=== PATIENT | male | born 1955 | race Caucasian/White ===

== ENCOUNTER → 2016-11-03 | Outpatient (CLI) | payer OTHER ==
[~2016-11-03] MED LIST: MELO15TA3 PO; OMEP20CA9 PO; SERT50TA PO
--- NOTE | 2016-11-03 13:18 | DIAGNOSTIC IMAGING REPORT ---
SACRUM COCCYX MIN 2 VIEWS CLINICAL HISTORY: M53.3 Coccyx pain COMPARISON STUDY: Abdomen and pelvis CT 10/15/2015. FINDINGS: No fractures within the sacrum or coccyx. Bilateral sacroiliac joints are within normal limits. Right pelvic calcification is consistent with a phlebolith. Presacral soft tissues are within normal limits. IMPRESSION: Unremarkable sacrum/coccyx. Electronically signed by: Philip Dumont M.D. 11/03/2016 1:17 PM Dictated Date/Time: 11/03/2016 1:15 PM
[2016-11-03 16:56] LABS: BASO % 0.3 %; BASO ABS # 0.02 K/uL (0-0.2); COMPLETE YES; HEMATOCRIT 44.1 % (42-52); IG% 0.8 %; LYMPH % 22.5 %; LYMPH ABS # 1.42 K/uL (1.2-3.4); MEAN CELL VOLUME 85.8 fL (80-100); MEAN CORPUSCULAR HEMOGLOBIN 29.2 pg (25-34); MEAN PLATELET VOLUME 9.1 fL (7.4-10.4); MONO % 9.2 %; NEUT % 64.2 %; PLATELET COUNT 191 K/uL (130-400); RED BLOOD COUNT 5.14 M/uL (4.7-6.1); WHITE BLOOD COUNT 6.32 K/uL (4.8-10.8)
[2016-11-03 17:10] LABS: ALT/SGPT 46 U/L (12-78); AST/SGOT 26 U/L (15-37); BLOOD UREA NITROGEN 16 mg/dl (7-18); BUN/CREATININE RATIO 15.7 (10-20); CALCIUM 9.4 mg/dl (8.5-10.1); CARBON DIOXIDE 26 mmol/L (21-32); CHLORIDE 111 mmol/L (98-107); GLUCOSE 89 mg/dl (70-99); MAGNESIUM 2.2 mg/dl (1.8-2.4); SODIUM 142 mmol/L (136-145)
[2016-11-03 17:11] LABS: ALB/GLOB RATIO 1.1 (0.9-2); ALKALINE PHOSPHATASE 80 U/L (45-117); RHEUMATOID FACTOR < 10.0 U/mL (0-15)
[2016-11-03 17:38] LABS: LYME DISEASE AB IGG NEG (NEG); LYME DISEASE AB IGM NEG (NEG)
== END | disposition home or self-care (01) ==
LOC: C.RADBC 12:26
PROVIDERS: ATTEND Physician Assistant Medical
DX: M53.3 Sacrococcygeal disorders, not elsewhere classified (principal); R94.31 Abnormal electrocardiogram [ECG] [EKG]; M25.50 Pain in unspecified joint

== ENCOUNTER → 2016-11-07 | Outpatient (CLI) | payer OTHER ==
--- NOTE | 2016-11-07 18:02 | DIAGNOSTIC IMAGING REPORT ---
LEFT HAND MIN 3 VIEWS ROUTINE CLINICAL HISTORY: 61 years-old Male presenting with ARTHRALGIA OF MULTIPLE SITES. TECHNIQUE: Frontal, oblique, and lateral views of the left hand were obtained. COMPARISON: None. FINDINGS: Sclerosis and suggestion of subchondral cystic change of the radial aspect of the radiocarpal articulation. No significant joint space narrowing. Minimal osteophytosis of the trapezium at the first carpometacarpal articulation. Minimal marginal osteophytes noted at several of the distal interphalangeal joints at the heads of the middle phalanges. No erosive changes. No acute fracture or malalignment. No soft tissue calcification. IMPRESSION: Degenerative change of the radiocarpal, first carpal metacarpal, and distal interphalangeal joints. No acute osseous injury. Electronically signed by: Jesus Low M.D. 11/07/2016 6:01 PM Dictated Date/Time: 11/07/2016 5:58 PM
--- NOTE | 2016-11-07 18:05 | DIAGNOSTIC IMAGING REPORT ---
RIGHT HAND MIN 3 VIEWS ROUTINE CLINICAL HISTORY: 61 years-old Male presenting with ARTHRALGIA OF MULTIPLE SITES Right. TECHNIQUE: Frontal, oblique, and lateral views of the right hand were obtained. COMPARISON: Plain radiographs of the right second finger from 2015. FINDINGS: Chondrocalcinosis of the triangular fibrocartilage. Minimal marginal osteophytosis noted at several distal interphalangeal joints. No erosions. No other soft tissue calcification. No acute fracture or malalignment. IMPRESSION: Chondrocalcinosis of the TFCC, which could be seen in the setting of osteoarthritis, calcium pyrophosphate deposition disease, and multiple additional etiologies. Minimal degenerative changes of the distal interphalangeal joints. Electronically signed by: Jesus Low M.D. 11/07/2016 6:04 PM Dictated Date/Time: 11/07/2016 6:01 PM
== END | disposition home or self-care (01) ==
LOC: C.RAD 17:32
PROVIDERS: ATTEND Physician Assistant Medical
DX: M25.50 Pain in unspecified joint (principal); M11.231 Other chondrocalcinosis, right wrist

== ENCOUNTER → 2017-01-13 | Outpatient (CLI) | payer OTHER ==
--- NOTE | 2017-01-14 07:54 | SPLIT NIGHT TECHNICIAN REPORT ---
[facility] Split Night Polysomnogram - Elevator Runner Report Study date: 01/13/2017 Referring Physician: Jesus Huffman M.D. Name: FABIOARMAANE Tristen Elevator Runner: Lisa Saravia, PSGT. Date of : 1955 Height: 61 years, Height 5' 7.5" Sex: Male Weight: 245 lbs Age: 61 Neck Circum:17.5 inches BMI: Medications: 37.8 [id number] 50-325-40 MG, OMEPRAZOLE 20 MG, SERTALINE HCI 50 MG. Patient History 61-YEAR-OLD MALE PRENTS TO THE SLEEP LAB FOR A SPLIT NIGHT STUDY. PATIENT STATES THAT HIS C-PAP MACHINE INOP AND NEEDS TO REPLACE IT. HE HAS BEEN USEING THE C-PAP SINCE 2006.NECK =17.5 INCHES. Parameters Monitored NPSG: E1-M2, E2-M1, Fp1-M2, Fp2-M1, F3-M2, F4-M2, F4-M1, C3-M2, C4-M2, C4-M1, O1-M2, O2-M2, O2-M1, T3-M2, T4-M1, P3-M2, P4-M1, CHIN1, CHIN2, HR, EKG, Legs, PFLOW, SNOR, FLOW, CFLOW, Tidal Volume, THOR, ABDO, SpO2, PLTH, CPRESS, ETCO2 Wave, ETCO2, pH SLEEP SUMMARY DATA DIAGNOSTIC TREATMENT Lights Out: 9:23:27 PM NONE Lights On: 12:21:27 AM 5:01:57 AM Total Recording Time (TRT): 181.9 min. 273.1 min. Total Sleep Time (TST): 127.5 min. 247.5 min. NREM Time: 124.0 min. 153.5 min. REM Time: 3.5 min. 94.0 min. Sleep Period Time (SPT): 134.0 min. 259.0 min. Sleep Efficiency (SE): 71 % 91 % Sleep Latency: 44.0 min. NONE min. Arousal Index: 35.8 21.1 PAP Treatment Levels: 4, 6, 8 * Optimal Pressure(s) SLEEP STAGING DATA DIAGNOSTIC TREATMENT Duration (min) TST % Duration (min) TST % Stage Wake: 51.9 min. -- 24.6 min. -- WASO: 6.5 min. -- 11.5 min. -- NREM: 124.0 min. 97 % 153.5 min. 62 % Stage N1: 45.0 min. 35 % 12.0 min. 5 % Stage N2: 79.0 min. 62 % 141.5 min. 57 % Stage N3: 0.0 min. 0 % 0.0 min. 0 % REM: 3.5 min. 3 % 94.0 min. 38 % POSITIONAL DATA Event Count Index Event Count Index Supine: N/A N/A 11 25.8 Supine NREM: N/A N/A 0 0.0 Supine REM: N/A N/A 11 45 Non-Supine: 92 43.3 3 0.8 Non-Supine NREM: 88 42.6 1 0.4 Non-Supine REM: 4 68.6 2 1.5 AROUSAL SUMMARY DATA: Event Count Index Event Count Index Apnea Arousals: 0 1.9 0 0.0 Hypopnea Arousals: 9 4.2 6 1.5 Snore Arousals: 5 2.4 12 2.9 PLM Arousals: 8 3.8 0 0.0 Non-Specific Arousals: 49 23.1 69 16.7 Total Arousals: 76 35.8 87 21.1 MYOCLONUS (PLM) Event Count Index Event Count Index PLM: 101 47.5 19 4.6 PLM AROUSAL: 8 3.8 0 0.0 PLM W/O AROUSAL 101 47.5 19 4.6 PLM W/RESP EVENT 11 0.0 0 0.0 MYOCLONUS (PLM) Event Count Index Event Count Index LM: 6 19.8 58 14.1 LM AROUSAL: 6 2.8 2 0.5 LM W/O AROUSAL LM W/RESP EVENT LM NON SPECIFIC 106 49.9 72 17.5 HEART RATE DATA DIAGNOSTIC TREATMENT Sleep (bpm): 66 63 REM (bpm): 93 95 NREM (bpm): 94 94 Tachycardia Count: 0 0 Tachycardia Duration: 0.00 0 Bradycardia Count: 0 0 Bradycardia Duration: 0.00 0 DIAGNOSTIC PORTION TREATMENT PORTION RESPIRATORY DATA Event Count Index Event Count Index AHI: -- 43.3 -- 3.4 RDI: -- 43.3 -- 3 Obstructive Apnea: 3 1.4 0 0.0 Central Apnea: 1 0.5 0 0.0 Mixed Apnea: 0 0.0 0 0.0 Hypopnea: 88 41.4 14 3.4 RERA: 0 0.0 0 0.0 Total Apneas: 4 1.9 0 0.0 RESPIRATORY DATA REM NREM SLEEP REM NREM SLEEP Supine Position: Obstructive Apneas: N/A N/A N/A 0 0 0 Central Apneas: N/A N/A N/A 0 0 0 Mixed Apneas: N/A N/A N/A 0 0 0 Hypopneas: N/A N/A N/A 11 0 11 RERA N/A N/A N/A 0 0 0 Total Supine Events: N/A N/A N/A 11 0 11 Supine AHI: N/A N/A N/A 45 0.0 25.8 Supine RDI: N/A N/A N/A 45.2 0.0 25.8 REM NREM SLEEP REM NREM SLEEP Non-Supine Position: Obstructive Apneas: 0 3 3 0 0 0 Central Apneas: 0 1 1 0 0 0 Mixed Apneas: 0 0 0 0 0 0 Hypopneas: 4 84 88 2 1 3 RERA 0 0 0 0 0 0 Total Supine Events: 4 88 92 2 1 3 Supine AHI: 68.6 42.6 43.3 1.5 0.4 0.8 Supine RDI: 68.6 42.6 43.3 1.5 0.4 0.8 OXYGEN DESTAURATION DATA: Event Count Index Event Count Index REM Desaturations: 5 85.7 22 14.0 NREM Desaturations: 119 57.6 9 3.5 SNORE DATA DIAGNOSTIC TREATMENT Snore Time: 6.1 12:42:57 AM Snore TST%: 2 2 Snore Arousal Count: 5 12 Snore Arousal Index: 2.4 2.9 Desaturation Event Summary: Minimum %SpO2 Event Count Mean/Min/Max Duration(sec.) Desaturation Index % Time In Bed > 90 154 21.9 / 4.8 / 59.3 22.3 94.4 86 - 90 1 4.5 / 4.5 / 4.5 2.5 5.5 81 - 85 0 N/A 0.0 0.1 76 - 80 0 N/A 0.0 0.0 71 - 75 0 N/A 0.0 0.0 66 - 70 0 N/A 0.0 0.0 61 - 65 0 N/A 0.0 0.0 56 - 60 0 N/A 0.0 0.0 51 - 55 0 N/A 0.0 0.0 < 50 0 N/A 0.0 0.0 OXYGEN SATURATION DATA DIAGNOSTIC TREATMENT SpO2 Mean Sleep: 94 % 95 % SpO2 Mean REM: 93 % 95 % SpO2 Mean NREM: 94 % 94 % SpO2 Minimum Sleep: 79 % 83 % SpO2 Minimum REM: 85 % 83 % SpO2 Minimum NREM: 79 % 88 % Time Below 90% (TST): 2.4 9.0 Time Below 88% (TST): 0.6 0.1 Total REM NREM Awake <50% 0.0 min. 0.0 min. 0.0 min. 0.0 min. 51 - 60% 0.0 min. 0.0 min. 0.0 min. 0.0 min. 61 - 70% 0.0 min. 0.0 min. 0.0 min. 0.0 min. 71 - 80% 0.1 min. 0.0 min. 0.1 min. 0.0 min. 81 - 90% 24.4 min. 1.2 min. 14.4 min. 8.9 min. 91 - 100% 414.2 min. 95.7 min. 257.0 min. 61.5 min. Average 94 95 94 94 Minimum SpO2 79 83 79 81 Desaturation Event Index 20.6 16.6 27.7 0.0 # Desat. Events below 89% 8 3 5 N/A Time(%) with Saturation below 89% 2.4 0.1 1.3 1.0 Time(min.) with Saturation below 89% 10.7 0.5 5.7 4.5 Recording Elevator Runner Comments: Split -Night: slept in the right, left, and supine positions. Cardiac arrhythmia and PLM's noted. No bruxism noted. Snoring was noted and scored as a 2 on a scale of 1 through 5. (0=no snoring, 5=snoring loud enough to be heard through a closed door or down the owens way) At 12:21 am, has met specific Split-Night criteria during the diagnostic portion of this study. CPAP was initiated at +4 CMH2O and up-titrated to an optimal level of +8 CMH2O, which nearly eliminated all respiratory events and snoring. A large F&P Simplus, was used during titration Mr. Bryan awoke to use the restroom zero times during the night. Mr. Bryan stated, I did not sleep as well as I do when I am in my own bed. The final report will be interpreted and signed by a sleep physician. The completed physician report will then be placed in the patient medical record. Therapy Event: Therapy (cm H20) 0 4 6 8 Total Time at Pressure (min.) 179.4 124.6 23.1 124.4 TST at Pressure (min.) 127.5 100.0 23.1 124.4 # Periods 1 1 1 1 Sleep Onset (min.) 44.0 13.1 0.0 0.0 REM Onset (min.) 112.0 65.6 0.0 59.9 Sleep Efficiency % 71 80 100 100 Wakefulness (%) 28.9 19.7 0.0 0.0 Wakefulness (min.) 51.9 24.6 0.0 0.0 NREM 1 (%) 25.1 9.2 0.0 0.4 NREM 1 (min.) 45.0 11.5 0.0 0.5 NREM 2 (%) 44.0 23.7 71.8 76.7 NREM 2 (min.) 79.0 29.5 16.6 95.4 NREM 3 (%) 0.0 0.0 0.0 0.0 NREM 3 (min.) 0.0 0.0 0.0 0.0 REM (%) 2.0 47.4 28.2 22.9 REM (min.) 3.5 59.0 6.5 28.5 # Arousals 76 48 5 34 Arousal Index 35.8 28.8 13.0 16.4 # Snore 239 65 16 105 Snore Index 112.5 39.0 41.5 50.6 AHI 43.3 4.8 10.4 1.0 AHI Supine N/A 51.9 13.7 N/A AHI Non-Supine 43.3 0.7 0.0 1.0 NREM AHI 42.6 0.0 0.0 0.6 REM AHI 68.6 8.1 36.9 2.1 RDI 43.3 4.8 10.4 1.0 # Obstructive 3 0 0 0 # Central Ap 1 0 0 0 # Mixed 0 0 0 0 # Hypopneas 88 8 4 2 RERAS 0 0 0 0 Total Respiratory Events 92 8 4 2 Time Below SpO2 89.00% (min.) 0.9 5.1 0.0 0.1 Mean NREM SpO2 (%) 94 93 95 95 Mean REM SpO2 (%) 93 95 95 95 Mean Sleep SpO2 (%) 94 94 95 95 Min NREM SpO2 (%) 79 88 94 92 Min REM SpO2 (%) 85 89 90 83 Position Supine (min.) 0.0 8.1 17.5 0.0 Position Non-supine (min.) 127.5 91.9 5.6 124.4 LM Index Sleep 67.3 25.8 10.4 14.5 LM Index NREM 68.7 36.6 0.0 15.0 LM Index REM 17.1 18.3 36.9 12.6 Mean Heart Rate (bpm) 66 63 63 62 Min Heart Rate (bpm) 32 55 60 57
--- NOTE | 2017-01-15 14:21 | POLYSOMNOGRAPH REPORT ---
CLINICAL DATA: A 61-year-old male with BMI of 37.8 referred by Jesus Huffman for split night sleep study. He has a CPAP machine which is not working and needs replaced. He has been using CPAP since 2006. This was a split night study. SLEEP ARCHITECTURE: For the diagnostic portion of the study, sleep period was 134 minutes. Total sleep time was 127.5 minutes divided between 124 minutes of non-REM sleep and 3.5 minutes of REM sleep. Sleep latency was delayed at 44 minutes. Sleep efficiency was 71%. Arousal index was 35.8. Sleep consisted of stage N1 35%, stage N2 62%, and REM 3%. For the treatment portion of the study, sleep period was 259 minutes. Total sleep time was 247.5 minutes divided between 153.5 minutes of non-REM sleep and 94 minutes of REM sleep. Sleep latency was immediate. Sleep efficiency was 91%. Arousal index was 21.1. Sleep consisted of stage N1 5%, stage N2 57%, and REM 38%. AROUSAL DATA: Prior to treatment, 76 arousals were recorded for an index of 35.8 per hour. During treatment, 87 arousals were recorded for an index of 21 per hour. PLM DATA: Prior to treatment, 106 limb movements during sleep were noted for an index of 50 per hour. During treatment, 72 limb movements during sleep were noted for an index of 17.5 per hour. EKG: Heart rates ranged from 63 to 95 beats per minute. PACs were noted. RESPIRATORY DATA: Severe sleep apnea was documented prior to treatment. The diagnostic AHI was 43.3. There were 3 obstructive and 1 central apneic episodes noted. There were 88 hypopneic episodes. During treatment, the average AHI was 3.4. There were 14 hypopneic episodes. OXIMETRY DATA: Nocturnal hypoxemia was seen prior to treatment. Oxygen pravin was 79% during non-REM sleep prior to treatment. Mean saturation during CPAP treatment was 95%. PETROGRAPHY TEACHER'S COMMENTS AND TREATMENT SUMMARY: The patient slept in the right, left, and supine positions. Snoring was moderate, rated 2 on a scale of 1-5. Split night criteria was met at 12:21 a.m. The patient was started on CPAP using a large [employer] Simplus mask. He was titrated up to 8 cm of water pressure. At his final pressure setting, the patient slept for 124 minutes with an AHI of 1. IMPRESSION: Severe sleep apnea/hypopnea corrected with CPAP 8 cm of water pressure using a large [employer] Simplus mask. RECOMMENDATIONS: The patient should be started on the above noted treatment regimen and seen back in followup within 90 days to document efficacy and compliance. MTDD
== END | disposition home or self-care (01) ==
LOC: C.NEUR 20:00
PROVIDERS: ATTEND Internal Medicine
DX: G47.30 Sleep apnea, unspecified (principal)

== ENCOUNTER → 2017-04-24 | Outpatient (CLI) | payer OTHER ==
[~2017-04-24] MED LIST changes: +ACET1TAB84 PO; +CLB/200 PO; +CYM/30 PO; -MELO15TA3 PO; +MULT-506 PO; -SERT50TA PO
--- NOTE | 2017-04-24 14:46 | ECHOCARDIOGRAM REPORT ---
*NOTICE TO RECEIVING CONSTITUTION PARTY AGENCY This information is strictly Confidential and protected under [place] law. [place] law prohibits you from making any further disclosure of this information unless further disclosure is expressly permitted by the written consent of the person to whom it pertains or is authorized by law. A general authorization for the release of medical or other information is not sufficient for this purpose. Hospital accepts no responsibility if the information is made available to any other person, INCLUDING THE PATIENT. Interpretation Summary * Name: SORIN MCCARTHY Study Date: 04/24/2017 12:44 PM BP: 148/80 mmHg * Patient Location: [facility] HR: 75 * : 1955 (M/d/yyyy) Gender: Male Height: 69 in * Age: 61 yrs Ethnicity: CA Weight: 244 lb * Ordering Physician: Jesus Huffman * Referring Physician: Jesus Huffman * Performed By: Gume Castillo RCS * * Reason For Study: Bifascicular Block, Pre-Op Clearance * BSA: 2.2 m2 * -- Conclusions -- * There is moderate asymmetric left ventricular hypertrophy. * Proximal septal thickening is noted. * Left ventricular systolic function is normal. * Diastolic dysfunction, Grade II, consistent with elevated left atrial pressure. * The left atrium is moderately dilated. * Mild aortic regurgitation. * There is systolic anterior motion of the chordal apparatus. * Right ventricular systolic pressure is normal. * Borderline aortic root dilatation. * There appears to be an element of mild aortic stenosis * Compared to study from 2013, there appears to have been interval increase in the degree of septal hypertrophy. This is concerning for development of a hypertrophic cardiomyopathy. Procedure Details * A complete two-dimensional transthoracic echocardiogram was performed (2D, M-mode, Doppler and color flow Doppler). Left Ventricle * The left ventricle is normal in size. * There is moderate asymmetric left ventricular hypertrophy. * Proximal septal thickening is noted. * Left ventricular systolic function is normal. * Diastolic dysfunction, Grade II, consistent with elevated left atrial pressure. * The left ventricular wall motion is normal. Right Ventricle * The right ventricle is normal in size and function. Atria * The left atrium is moderately dilated. * Right atrial size is normal. Mitral Valve * The mitral valve is normal. * There is systolic anterior motion of the chordal apparatus. * Significant mitral regurgitation is absent. Tricuspid Valve * The tricuspid valve is not well visualized, but is grossly normal. * There is mild tricuspid regurgitation. * Right ventricular systolic pressure is normal. Aortic Valve * The aortic valve is not well visualized. * There appears to be an element of mild aortic stenosis * Mild aortic regurgitation. * There is an eccentric jet of aortic insufficiency directed against the anterior mitral leaflet. Great Vessels * Borderline aortic root dilatation. Pericardium/Pleural * There is no pericardial effusion. MMode 2D Measurements and Calculations IVSd 1.8 cm IVSs 2.6 cm LVIDd 3.9 cm LVIDs 2.1 cm LVPWd 1.1 cm LVPWs 1.2 cm IVS/LVPW 1.7 FS 46.2 % EDV(Teich) 64.5 ml ESV(Teich) 14.1 ml EF(Teich) 78.2 % EDV(cubed) 57.7 ml ESV(cubed) 9.0 ml EF(cubed) 84.4 % % IVS thick 46.8 % % LVPW thick 11.2 % LV mass(C)d 206.5 grams LV mass(C)dI 91.9 grams/m\S\2 LV mass(C)s 164.8 grams LV mass(C)sI 73.3 grams/m\S\2 SV(Teich) 50.4 ml SI(Teich) 22.4 ml/m\S\2 SV(cubed) 48.7 ml SI(cubed) 21.7 ml/m\S\2 Ao root diam 4.0 cm Ao root area 12.3 cm\S\2 ACS 2.2 cm LA dimension 4.5 cm asc Aorta Diam 4.2 cm LA/Ao 1.1 LVOT diam 2.2 cm LVOT area 3.7 cm\S\2 EDV(MOD-sp4) 118.0 ml ESV(MOD-sp4) 39.0 ml EF(MOD-sp4) 66.9 % SV(MOD-sp4) 79.0 ml SI(MOD-sp4) 35.1 ml/m\S\2 Doppler Measurements and Calculations MV E max joao 77.6 cm/sec MV A max joao 66.0 cm/sec MV E/A 1.2 MV P1/2t max joao 130.0 cm/sec MV P1/2t 76.3 msec MVA(P1/2t) 2.9 cm\S\2 MV dec slope 499.2 cm/sec\S\2 MV dec time 0.29 sec Ao V2 max 247.6 cm/sec Ao max PG 24.5 mmHg Ao max PG (full) 18.4 mmHg Ao V2 mean 165.3 cm/sec Ao mean PG 12.6 mmHg Ao mean PG (full) 9.0 mmHg Ao V2 VTI 53.6 cm RAZA(I,A) 1.9 cm\S\2 RAZA(I,D) 1.9 cm\S\2 RAZA(V,A) 1.9 cm\S\2 RAZA(V,D) 1.9 cm\S\2 AI max joao 407.7 cm/sec AI max PG 66.5 mmHg AI dec slope 258.5 cm/sec\S\2 AI P1/2t 461.9 msec LV V1 max PG 6.1 mmHg LV V1 mean PG 3.5 mmHg LV V1 max 123.4 cm/sec LV V1 mean 89.2 cm/sec LV V1 VTI 27.3 cm SV(Ao) 657.1 ml SI(Ao) 292.3 ml/m\S\2 SV(LVOT) 102.2 ml SI(LVOT) 45.5 ml/m\S\2 PA V2 max 122.5 cm/sec PA max PG 6.0 mmHg TR max joao 262.1 cm/sec
== END | disposition home or self-care (01) ==
LOC: C.CPL 12:14
PROVIDERS: ATTEND Internal Medicine
DX: Z01.818 Encounter for other preprocedural examination (principal); I45.2 Bifascicular block; I51.7 Cardiomegaly

== ENCOUNTER 2017-06-10 10:59 | Observation (INO) | payer OTHER ==
[2017-04-21 08:25] VITALS: BMI 36.0
[2017-05-28 13:36] VITALS: BMI 36.0
[~2017-06-10] VITALS: Ht 175.3 cm; Wt 110.9 kg
[2017-06-10] VITALS (10 sets, daily range): BP systolic 124–167; BP diastolic 74–99; PULSE 68–85; TEMP 36.3–37; O2SAT 94–97; Ht 175.3 cm; Wt 110.9 kg
--- NOTE | 2017-06-10 07:11 | History and Physical ---
History & Physical Date Jun 10, 2017. Chief Complaint Patient presents as a 61-year-old white male with complaints of a chronic pain about his knee with a chronic tear of his anterior cruciate ligament of the right knee as well as a tear of the posterior horn of the medial meniscus of his right knee he has a left knee medial meniscal tear with chondromalacia patella medial femoral condyle complaints of bilateral knee pain the patient's failed times in physical therapy bracing of his right knee anti-inflammatories corticosteroid injections relative rest activity modification presents today for endoscopic evaluation of bilateral knees History of Present Illness The patient is a 61 year old male with complaints of bilateral knee pain with tears of bilateral menisci chronic intakes ACL tear of his right knee as well as chondromalacia of both medial compartments as well as patellofemoral compartments Past Medical/Surgical History Medical Problems: (1) Anxiety State Nos (2) Chest wall pain (3) Chest wall pain (4) Hypertension Nos (5) Reflux Esophagitis Additional History Hepatic Disease: No Endocrine Disorder: No Hypertension: Yes Heart Disease: Yes (irregular heart beat) Allergies Coded Allergies: BEE STING (Verified Allergy, Unknown, SWELLING, 05/28/17) NO KNOWN DRUG ALLERGIES (Verified Allergy, Unknown, NONE, 05/28/17) Onion (Verified Allergy, Unknown, GI UPSET UP TO LOSE BALANCE, HALLUCINATE WITH LARGER AMTS, 05/28/17) Home Medications Scheduled Acetaminophen (Tylenol Arthritis Ext Rel), 1,300 MG PO PRN Celecoxib (CeleBREX), 200 MG PO QPM Duloxetine HCl (Cymbalta), 90 MG PO QPM Multivitamin (Multivitamin), 1 TAB PO QAM Omeprazole (Prilosec), 20 MG PO BID Physical Examination Skin: warm/dry, no rash Eyes: normal inspection, EOMI, sclerae normal ENT: normal ENT inspection, pharynx normal Head: normocephalic, atraumatic Neck: supple, no adenopathy, trachea midline Respiratory/Chest: lungs clear, normal breath sounds, no respiratory distress Cardiovascular: regular rate, rhythm, no edema, no murmur Abdomen / GI: normal bowel sounds, non tender Back: normal inspection Extremities: normal inspection, normal range of motion Neurologic/Psych: no motor/sensory deficits, alert, normal reflexes, oriented x 3 Diagnosis Patient presents with bilateral knee pain right knee chronic ACL tear medial meniscus tear left knee medial meniscal tear 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
--- NOTE | 2017-06-10 10:31 | History & Physical Bridge Note ---
H&P Re-Evaluation Bridge Note: I have examined the patient, reviewed the History & Physical and in the interval since the performance of the History & Physical I have noted the following changes of clinical significance: No changes noted
[~2017-06-10 10:59] MED LIST changes: +ATROPINE SULFATE 0.1 MG/ML 5ML SYR IV PRN; +BUPIVACAINE 0.25% 30 ML VIAL ONE; +CEFAZOLIN 2000MG IV PUSH 15 ML IV SCH; +EpHEDrine SULFATE INJ 50 MG/ML AMP IV PRN; +FENTANYL CITRATE INJ 50 MCG/1 ML 2 ML VIAL IV PRN; +HYDROmorphone INJ 1 MG/ML SYR IV PRN; +LACTATED RINGER'S 1000ML 500 ML IV SCH; +ONDANSETRON INJ 2 MG/ML 2 ML VIAL IV PRN
[2017-06-10] MEDS ORDERED: PROPOFOL IV EMULSION 10 MG/ML 20 ML VIAL IV ONE (11:41)
[2017-06-10] MEDS ORDERED: LIDOCAINE HCL 2% 2 ML VIAL (20MG/ML) ONE (11:41)
[2017-06-10] MEDS ORDERED: DEXAMETHASONE SOD INJ 4 MG/ML VIAL ONE (11:41)
[2017-06-10] MEDS ORDERED: ONDANSETRON INJ 2 MG/ML 2 ML VIAL ONE (11:41)
[2017-06-10] MEDS ORDERED: FENTANYL CITRATE INJ 50 MCG/1 ML 2 ML VIAL ONE ×4 (11:41→15:06)
[2017-06-10] MEDS ORDERED: MIDAZOLAM HCL 1 MG/ML 2ML VIAL ONE (11:41)
[2017-06-10] MEDS ORDERED: BUPIVACAINE/EPINEPHRINE 0.5% MPF 1:200,000 30 ML VIAL ONE (12:00)
[2017-06-10] MEDS ORDERED: BUPIVACAINE 0.5 % 5 MG/1 ML MPF 30ML VIAL ONE (12:00)
--- NOTE | 2017-06-10 12:32 | History & Physical Bridge Note ---
H&P Re-Evaluation Bridge Note: I have examined the patient, reviewed the History & Physical and in the interval since the performance of the History & Physical I have noted the following changes of clinical significance: No changes noted please note correction the patient will have bilateral partial possible partial meniscectomies corrected not vasectomy meniscectomy possible partial meniscectomies as the correct terminology
--- NOTE | 2017-06-10 14:43 | [facility] Post Operative Brief Note ---
Immediate Operative Summary Operative Date Jun 10, 2017. Pre-Operative Diagnosis 1.Bilateral Knee Pain 2. 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 Left Knee Medial Meniscal Tear, Chondromalacia Medial Femoral Condyle Patellofemoral Joint Post-Operative Diagnosis Right Knee: Torn anterior cruciate ligament; torn medial meniscus; torn lateral meniscus. Left Knee: Torn medial meniscus grade 3 chondral lesion patellofemoral joint Torn medial meniscus; grade 3 patellofemoral chondromalacia Procedure(s) Performed Right Knee Arthroscopy with Medial Menisectomy, Lateral Meniscectomy, Anterior Cruciate Ligament Reconstruction with Allograft; Left Knee Arthroscopy with Partial Medial Meniscectomy, Chondroplasty Surgeon Dr. Rodriguez Farley Commercial Collector Surgeon(s) Casimiro Gipson PA-C Estimated Blood Loss 5mL right, 2mL left Findings Consistent with Post-Op Diagnosis Specimens none, Per Surgeon Drains None Anesthesia Type General Complication(s) none Disposition Disposition: Recovery Room / PACU
--- NOTE | 2017-06-10 14:46 | [facility] Operative Report ---
Operative Report Operative Date Jun 10, 2017. Pre-Operative Diagnosis 1.Bilateral Knee Pain 2. 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 Left Knee Medial Meniscal Tear, Chondromalacia Medial Femoral Condyle Patellofemoral Joint Post-Operative Diagnosis Right Knee: Torn anterior cruciate ligament; torn medial meniscus; torn lateral meniscus. Left Knee: Torn medial meniscus grade 3 chondral lesion patellofemoral joint Torn medial meniscus; grade 3 patellofemoral chondromalacia Procedure(s) Performed Right Knee Arthroscopy with Medial Menisectomy, Lateral Meniscectomy, Anterior Cruciate Ligament Reconstruction with Allograft; Left Knee Arthroscopy with Partial Medial Meniscectomy, Chondroplasty Surgeon Dr. Rodriguez Farley Process Eng Surgeon(s) Casimiro Gipson PA-C Estimated Blood Loss 5mL right, 2mL left Findings Patient presents with bilateral knee pain right knee torn anterior cruciate ligament or medial meniscus torn lateral meniscus left knee torn medial meniscus grade 3 chondral lesion patellofemoral joint but no response to conservative therapy presents today for arthroscopic evaluation of bilateral knees with ACL reconstruction right knee Specimens none, Per Surgeon Drains None Anesthesia Type General Complication(s) none Disposition Recovery Room / PACU Indications Patient presents with bilateral knee pain and instability right knee has a torn anterior cruciate ligament with medial meniscal tear lateral meniscal tear left knee has a medial meniscal tear with grade 3 chondral lesions patellofemoral joint is been unresponsive to conservative therapy presents for arthroscopic evaluation Description of Procedure After proper prepping draping of bilateral lower extremities the right lower extremity subsidy underwent arthroscopy utilizing medial lateral parapatellar portals. Examination of the right knee reveals a complex tear posterior horn the medial meniscus complex tear the posterior horn lateral meniscus absent partial posterior horn medial and lateral meniscectomies were performed there was noted to be evidence of a complete tear of the anterior crucial ligament stump of the ACL was debrided and was removed and notchplasty was performed to create the region for a new ACL allograft: Allograft had been prepared at the back table associated having performed a thorough partial posterior horn medial meniscectomy partial posterior horn lateral meniscectomy debridement of stump and notchplasty appropriate tibial and femoral tunnels were drilled allograft was sized to 8.5 mm on tibia and 8.5 mm on the femur social was passed and fixed with 15 mm Endobutton on the femur the tibial side was fixed with a 10 x 25 mm absorbable screw the examination of the knee revealed he has not the need to be completely stable no further Valentín examination was noted no further instability or pivot shift was noted subscale particular matter debris was removed skin ports were closed with 4-0 nylon the anteromedial incision was closed with a 3-0 Vicryl and subsequently 4-0 running subcuticular Monocryl curl in the immobilizer was placed to the left knee arthroscopy was subsequently performed utilizing medial and appropriate patellar portals Examination of the left knee revealed evidence of a complex tear of the posterior horn of the medial meniscus of a partial posterior horn medial meniscectomy was performed lateral meniscus was also frozen to be intact anterior and posterior cruciate ligament is also probably to be intact there is a grade 3 chondral lesion measuring 2 x 2 cm involving patellofemoral joint chondroplasty of the patellofemoral joint back to stable margin for both patella and femur for a 2.5 x 3 cm lesion confirmed with thorough irrigation to remove marginal. Microdebriders removed skin was closed with 4-0 nylon and a sterile compression dressing placed patient taken to recovery in stable condition. 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 Any exceptions are noted below.
[2017-06-10] MEDS ORDERED: HYDR-5688 PO (14:54)
[2017-06-10] MEDS ORDERED: KETOROLAC TROMETHAMINE 15 MG/ML VIAL IV. PRN (15:00)
[2017-06-10] MEDS ORDERED: MoRPHine SULFATE 2 MG/ML CARP IV PRN (15:00)
[2017-06-10] MEDS ORDERED: ONDANSETRON INJ 2 MG/ML 2 ML VIAL IV PRN ×2 (15:00→17:15)
--- NOTE | 2017-06-10 15:06 | Discharge Instructions ---
Discharge Instructions Date of Service Jun 10, 2017. Visit Reason for Visit: Bilateral Knee Medial Meniscus Tears, Rt Knee Acl Discharge Discharge Diagnosis / Problem: Bilateral Medial Meniscal Tears, ACL tear Left knee Discharge Goals Goal(s): Decrease discomfort, Improve function Activity Recommendations Activity Limitations: per Instructions/Follow-up section Weightbearing Status: Left weightbearing (as tolerated), Right weightbearing ( as tolerated) Anesthesia . Post Anesthesia Instructions: If you have had General Anesthesia or IV Sedation: * Do not drive today. * Resume driving when surgeon permits. * Do not make important decisions or sign legal documents today. * Call surgeon for: 1. Temperature elevations greater than 101 degrees F. 2. Uncontrollable pain. 3. Excessive bleeding. 4. Persistent nausea and vomiting. 5. Medication intolerance (nausea, vomiting or rash). * For nausea and vomiting use only clear liquids such as: tea, soda, bouillon until nausea subsides, then gradually increase diet as tolerated. * If you have any concerns or questions, call your surgeon's office. If physician is unavailable and it is an emergency, call 911 or go to the nearest emergency room. . Instructions / Follow-Up Instructions / Follow-Up ACL Recontstruction ACTIVITY RECOMMENDATIONS: * Begin physical therapy this week. * Do range of motion knee exercises, as instructed, 4-6 times daily. * Weight bearing as instructed prior to discharge. * May drive car if: a. Standard transmission - right or left leg surgery - as soon as walking without crutches. b. Automatic transmission - left leg surgery - immediately right leg - as soon as walking without crutches. SPECIAL CARE INSTRUCTIONS: * Change dressings in 48 hours. Left knee and right knee small incisions can have bandaids put over them. The left knee incision (1" long) will need to be covered with gauze. Continue to use connor wraps around the knees to help with swelling * Apply ice to knee for 72 hours after surgery. * Knee immobilizer in extension for the first week except for range of motion exercises. * Call office at if there are any problems such as excessive wound drainage or increased temperature above 100 degrees F. Arthroscopic Knee ACTIVITY RECOMMENDATIONS: * You may walk on the leg with or without crutches as comfort permits. * Bending of the knee should start at once. * Do not shower for 48 hours following surgery. SPECIAL CARE INSTRUCTIONS: * You may cleanse the skin adjacent to the small wounds with soap and water at the time of the first dressing change. * The application of an ice bag to the front and sides of the knee will decrease swelling and discomfort for the first 48 hours. * The small incisions may be sore and develop bruising. This bruising does not require any special care. SPECIAL PRECAUTIONS: * If you experience unusual pain unrelieved by prescriptions, temperature elevation (100 degrees F. or above) or progressive swelling or bleeding, you should contact our office at for further evaluation. * You may have been prescribed pain medication. If you experience nausea and/or fine skin rash, discontinue this medication and contact our office at for an alternate medication. DRESSING: * Dressing should be comfortable and absorb any leakage of fluid and/or blood. * The dressing may become moist or bloodstained. * Dressing may be removed 48 hours after surgery and bandaids placed over the small surgical incisions. If can be removed sooner if it becomes very soiled or loose. * Bandaids may be used over next several days as needed and can be discontinued when there is not further drainage from the wounds. FOLLOW UP VISIT: If appointment is not already scheduled: Please call [facility] to make a follow-up appointment for your surgery at . Diet Recommendations Recommended Home Diet: resume previous diet Procedures Procedures Performed: Right Knee Arthroscopy with Medial Menisectomy, Lateral Meniscectomy, Anterior Cruciate Ligament Reconstruction with Allograft; Left Knee Arthroscopy with Partial Medial Meniscectomy, Chondroplasty Pending Studies Studies pending at discharge: no Medical Emergencies . Who to Call and When: Medical Emergencies: If at any time you feel your situation is an emergency, please call 911 immediately. . Non-Emergent Contact Non-Emergency issues call your: Surgeon Call Non-Emergent contact if: temperature is above 101.5, your pain is not controlled, your pain is worsening, wound has increased drainage, wound has increased redness . . "Provider Documentation" section prepared by Casimiro iGpson. . [place] Drug Monitoring Program Search Results: patient reviewed within database, no issues identified
--- NOTE | 2017-06-10 17:00 | Anesthesiology Progress Note ---
Anesthesia Post Op Note Date & Time Jun 10, 2017 at 16:57 Vital Signs Pain Intensity: 2 Vital Signs Past 12 Hours Date Time Temp Pulse Resp B/P (MAP) Pulse Ox O2 Delivery O2 Flow Rate FiO2 06/10/17 16:17 72 93 06/10/17 16:17 72 06/10/17 16:16 161/88 06/10/17 16:12 69 15 06/10/17 16:12 71 15 94 06/10/17 16:11 36.4 94 Room Air 06/10/17 16:11 160/83 06/10/17 16:08 68 12 94 06/10/17 16:08 68 12 06/10/17 16:06 150/86 06/10/17 16:03 65 16 96 06/10/17 16:03 66 16 06/10/17 16:01 157/91 06/10/17 15:58 69 16 95 06/10/17 15:58 68 16 06/10/17 15:57 65 16 94 06/10/17 15:57 67 16 06/10/17 15:56 153/93 06/10/17 15:52 68 15 06/10/17 15:52 66 15 95 06/10/17 15:51 154/83 06/10/17 15:47 66 12 94 06/10/17 15:47 67 12 06/10/17 15:46 153/91 06/10/17 15:42 65 16 97 06/10/17 15:42 64 16 06/10/17 15:41 161/86 06/10/17 15:38 72 13 94 06/10/17 15:38 70 13 06/10/17 15:36 161/89 06/10/17 15:33 68 16 95 06/10/17 15:33 68 16 06/10/17 15:31 159/90 06/10/17 15:28 68 16 06/10/17 15:28 69 16 93 06/10/17 15:26 156/88 06/10/17 15:23 69 14 93 06/10/17 15:23 69 14 06/10/17 15:22 71 14 06/10/17 15:22 70 14 94 06/10/17 15:21 162/89 06/10/17 15:17 69 12 93 06/10/17 15:17 70 12 06/10/17 15:16 154/94 06/10/17 15:12 67 16 06/10/17 15:12 67 16 96 06/10/17 15:11 155/86 06/10/17 15:07 65 16 100 06/10/17 15:07 66 16 06/10/17 15:06 152/90 06/10/17 15:02 65 12 06/10/17 15:02 66 12 98 06/10/17 15:01 156/91 06/10/17 14:58 64 16 100 06/10/17 14:58 65 16 06/10/17 14:56 154/89 06/10/17 14:53 64 11 100 06/10/17 14:53 65 11 06/10/17 14:51 145/85 06/10/17 14:48 36.2 73 16 154/84 100 Oxymask 10 06/10/17 14:48 72 16 06/10/17 14:48 72 16 100 06/10/17 11:49 36.7 68 20 160/99 (119) 97 Room Air Notes Mental Status: alert / awake / arousable, participated in evaluation Pt Amnestic to Procedure: Yes Nausea / Vomiting: adequately controlled Pain: adequately controlled Airway Patency, RR, SpO2: stable & adequate BP & HR: stable & adequate Hydration State: stable & adequate Anesthetic Complications: no major complications apparent Mr. Bryan had a slightly longer than usual PACU stay as he was somnolent after surgery. This did improve drastically and he was much more awake and conversant after about 1.5 hours in PACU. He went to phase 2 recovery but his was concerned about his ability to get from his car at home into their home, especially given the inclement weather. Of note, he had b/l knee surgeries completed (left knee scope and right ACL repair). I agreed that this would make it difficult to transfer and ambulate immediately after surgery. I had recovery nurse talk with ortho PA involved in the case and he asked to involve the on- call physician Dr. Cat (this was after I spoke with Dr. Farley's partner Dr. Mcelroy who was currently operating at the time). The plan would be for the oncall orthopedic physician to admit the patient for overnight observation. Patient and his agreed to plan. will call order clerk anesthesiologist also made aware of the plan.
[2017-06-10] MEDS ORDERED: ACETAMINOPHEN 325 MG TAB PO PRN (17:15)
[2017-06-10] MEDS ORDERED: OXYCODONE HCL IR 5 MG TAB (IMMEDIATE RELEASE) PO PRN ×2 (17:15)
[2017-06-10] MEDS ORDERED: MoRPHine SULFATE 4 MG/ML 1 ML CARP\\VIAL IV PRN (17:15)
[2017-06-10] MEDS: KETOROLAC TROMETHAMINE 30 MG/ML VIAL IV. PRN (18:01)
[2017-06-10] MEDS ORDERED: IV FLUIDS COMPLETED PRN (18:30)
[2017-06-10 18:55] LABS: HEMATOCRIT 42.5 % (42-52); HEMOGLOBIN 15.1 g/dL (14.0-18.0); MEAN CELL VOLUME 83.7 fL (80-100); MEAN CORPUSCULAR HEMOGLOBIN 29.7 pg (25-34); MEAN CORPUSCULAR HGB CONC 35.5 g/dl (32-36); MEAN PLATELET VOLUME 8.5 fL (7.4-10.4); PLATELET COUNT 193 K/uL (130-400); RED CELL DISTRIBUTION WIDTH CV 13.3 % (11.5-14.5); RED CELL DISTRIBUTION WIDTH SD 39.7 fL (36.4-46.3); WHITE BLOOD COUNT 8.31 K/uL (4.8-10.8)
[2017-06-10 19:17] LABS: CALCIUM 9.4 mg/dl (8.5-10.1); CREATININE 1.17 mg/dl (0.60-1.40)
[2017-06-10] MEDS ORDERED: DULOXETINE (CYMBALTA) 30 MG CAP PO SCH (21:00)
[2017-06-10] MEDS: PANTOprazole SOD 40 MG TAB PO SCH (21:27)
[2017-06-11 03:45] VITALS: BP 159/77; PULSE 82; TEMP 37; O2SAT 98
[2017-06-11 07:20] VITALS: O2SAT 98
[2017-06-11 07:28] VITALS: BP 152/85; PULSE 69; TEMP 36.9; O2SAT 97
--- NOTE | 2017-06-11 08:37 | Orthopedic Progress Note ---
Orthopedic Progress Note Date of Service Jun 11, 2017. Subjective Post OP Day: 1 Reports: feeling well, pain controlled w PO medications, Denies: chest pain, SOB , nausea / vomiting, light headedness Additional Notes: + right calf pain Objective N/V intact, capillary refill less than 2 sec., dressing C/D/I, A&O x3, toes mobile + marin right calf, TTP right lower leg Date Time Temp Pulse Resp B/P (MAP) Pulse Ox O2 Delivery O2 Flow Rate FiO2 06/11/17 07:28 36.9 69 16 152/85 (107) 97 Oxymask 2.0 06/11/17 07:20 98 Oxymask 2.0 Humidified Oxygen 06/11/17 03:45 37.0 82 18 159/77 (104) 98 Oxymask 2.0 Humidified Oxygen 06/11/17 00:15 Oxymask 2.0 Humidified Oxygen 06/10/17 23:50 36.6 79 16 124/74 (91) 96 Nasal Cannula 2.0 Humidified Oxygen 06/10/17 21:50 36.8 85 16 128/77 (94) 94 Room Air 06/10/17 20:50 37.0 83 18 138/84 (102) 95 Room Air 06/10/17 20:23 97 Room Air 06/10/17 19:50 36.7 82 18 147/82 (103) 96 Room Air 06/10/17 18:48 36.3 71 18 167/96 (119) 97 Room Air 06/10/17 18:15 69 165/85 (111) 06/10/17 16:55 36.7 71 16 155/96 95 Room Air 06/10/17 16:25 36.7 70 14 153/84 95 Room Air 06/10/17 16:17 72 93 06/10/17 16:17 72 06/10/17 16:16 161/88 06/10/17 16:12 69 15 06/10/17 16:12 71 15 94 06/10/17 16:11 36.4 94 Room Air 06/10/17 16:11 160/83 06/10/17 16:08 68 12 94 06/10/17 16:08 68 12 06/10/17 16:06 150/86 06/10/17 16:03 65 16 96 3/21/18 16:03 66 16 18 16:01 157/91 18 15:58 69 16 95 18 15:58 68 16 06/10/17 15:57 65 16 94 18 15:57 67 16 18 15:56 153/93 18 15:52 68 15 06/10/17 15:52 66 15 95 06/10/17 15:51 154/83 06/10/17 15:47 66 12 94 06/10/17 15:47 67 12 18 15:46 153/91 06/10/17 15:42 65 16 97 06/10/17 15:42 64 16 06/10/17 15:41 161/86 06/10/17 15:38 72 13 94 06/10/17 15:38 70 13 06/10/17 15:36 161/89 06/10/17 15:33 68 16 95 06/10/17 15:33 68 16 06/10/17 15:31 159/90 06/10/17 15:28 68 16 06/10/17 15:28 69 16 93 06/10/17 15:26 156/88 06/10/17 15:23 69 14 93 06/10/17 15:23 69 14 06/10/17 15:22 71 14 06/10/17 15:22 70 14 94 18 15:21 162/89 18 15:17 69 12 93 18 15:17 70 12 18 15:16 154/94 06/10/17 15:12 67 16 06/10/17 15:12 67 16 96 18 15:11 155/86 06/10/17 15:07 65 16 100 18 15:07 66 16 18 15:06 152/90 06/10/17 15:02 65 12 06/10/17 15:02 66 12 98 06/10/17 15:01 156/91 18 14:58 64 16 100 18 14:58 65 16 18 14:56 154/89 06/10/17 14:53 64 11 100 18 14:53 65 11 06/10/17 14:51 145/85 06/10/17 14:48 36.2 73 16 154/84 100 Oxymask 10 06/10/17 14:48 72 16 06/10/17 14:48 72 16 100 06/10/17 11:49 36.7 68 20 160/99 (119) 97 Room Air Laboratory Results 24 Hours: Test 06/10/17 18:33 Hematocrit 42.5 % Hemoglobin 15.1 g/dL Prothromb Time International Ratio 1.0 Prothrombin Time 10.8 SECONDS Assessment & Plan Assessment: POD #1 s/p right knee ACL, left knee scope -will fit for CPB brace locked in extension right leg when ambulating -will obtain US to r/o DVT right leg -may d/c home later today with OPPT at [place] if US negative and once brace is fitted. Discharge Planning Discharge Planning: home with oppt Therapy: Physical Therapy
[2017-06-11] MEDS: PANTOprazole SOD 40 MG TAB PO SCH (08:52)
--- NOTE | 2017-06-11 10:31 | DIAGNOSTIC IMAGING REPORT ---
RIGHT LOWER EXTREMITY VENOUS DOPPLER HISTORY: Right calf pain COMPARISON STUDY: None. FINDINGS: There is normal compressibility, flow, and augmentation within the right lower extremity deep venous system. IMPRESSION: No DVT within the right lower extremity Electronically signed by: Philip Dumont M.D. 06/11/2017 10:30 AM Dictated Date/Time: 06/11/2017 10:29 AM
[2017-06-11] MEDS: KETOROLAC TROMETHAMINE 30 MG/ML VIAL IV. PRN (10:32)
[2017-06-11 13:58] VITALS: BP 152/85; PULSE 69; TEMP 36.9; O2SAT 97
[2017-06-11 15:19] VITALS: BP 156/89; PULSE 71; TEMP 36.8; O2SAT 97
--- NOTE | 2017-06-12 16:05 | DISCHARGE SUMMARY ---
DISCHARGE DIAGNOSES: Bilateral knee pain with right chronic anterior cruciate ligament tear, medial meniscus tear, left knee medial meniscus tear, chondromalacia medial femoral condyle and patellofemoral joint. SECONDARY DIAGNOSES: Anxiety, hypertension, gastroesophageal reflux disease. CONSULTS: None. COMPLICATIONS: None. PROCEDURES: 1. Right knee arthroscopy with medial meniscectomy, lateral meniscectomy, anterior cruciate ligament reconstruction with allograft. 2. Left knee arthroscopy with partial medial meniscectomy and chondroplasty by Dr. Farley on 06/10/2017. BRIEF HISTORY: As dictated in the history and physical. HOSPITAL SUMMARY: The patient was admitted on the above-noted date with the above-noted surgeries and tolerated surgeries well. The patient stayed overnight due to increased somnolence postoperatively, and by his first morning on the , he was feeling well and pain was controlled. He had no complaints. He had some right calf discomfort. Neurovascularly he was intact. Cap refill was less than 2 seconds. Dressings were clean, dry and intact. Toes were mobile. He had a positive Homans sign right calf, TTP right lower leg. Vital signs were stable. He was afebrile. An ultrasound was ordered of the right lower extremity and showed no DVT. He had ambulated 63 feet x2 with standard walker but was otherwise progressing and he was otherwise remaining stable and was felt he could be discharged home on 06/11/2017. For further review, please see chart. LAB AND X-RAY DATA: As per chart. DISCHARGE INSTRUCTIONS: The patient was discharged home in satisfactory condition on 06/11/2017. DIET: Resume previous diet. ACTIVITY: Right and left weightbearing as tolerated of the lower extremities. Follow ACL reconstruction and arthroscopic knee recommendations and instructions, and follow up with Dr. Farley in 10-14 days. DISCHARGE MEDICATIONS: Hydrocodone 5/325 one to two tabs p.o. q. 4-6 hours p.r.n. Resume home meds as listed and stop taking Celebrex.
== END 2017-06-11 15:50 | disposition home or self-care (01) ==
LOC: C.ACU 10:59 → C.MSW 17:14 → ENRESERV 17:29
PROVIDERS: ADMIT Orthopaedic Surgery; ATTEND Orthopaedic Surgery
DX: S83.511A Sprain of anterior cruciate ligament of right knee, initial encounter (principal); M23.221 Derangement of posterior horn of medial meniscus due to old tear or injury, right knee; M23.222 Derangement of posterior horn of medial meniscus due to old tear or injury, left knee; M23.251 Derangement of posterior horn of lateral meniscus due to old tear or injury, right knee; M22.42 Chondromalacia patellae, left knee; X58.XXXA Exposure to other specified factors, initial encounter; F41.9 Anxiety disorder, unspecified; I10 Essential (primary) hypertension; K21.0 Gastro-esophageal reflux disease with esophagitis; Z79.899 Other long term (current) drug therapy

== ENCOUNTER 2018-07-25 22:18 | Inpatient (IN) ==
--- OUTSIDE RECORDS SUMMARY | 2018-07-25 22:22 | External Medical Summary | Continuity of Care Document ---
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) Elevated BP without diagnosis of hypertension (796.2) (R03.0 ) Hematuria, gross (599.71) (R31.0) Encounter for prostate cancer screening (V76.44) (Z12.5) Hyperglycemia (790.29) (R73.9) Abnormal electrocardiogram (794.31) (R94.31) Hearing difficulty of both ears (389.9) (H91.93) Posterior neck pain (723.1) (M54.2) Bifascicular block (426.53) (I45.2) Abnormal echocardiogram (793.2) (R93.1) Coccyx pain (724.79) (M53.3) BPH (benign prostatic hyperplasia) (600.00) (N40.0) Memory loss (780.93) (R41.3) Hypertrophic cardiomyopathy (425.18) (I42.2) Hypertension (401.9) (I10) GERD without esophagitis (530.81) (K21.9) Arthralgia of multiple sites (719.49) (M25.50) Obstructive sleep apnea (327.23) (G47.33) Pain involving joint of finger of right hand (719.44) (M25.5 41) Doral eye (372.03) (H10.029) Sensorineural hearing loss (SNHL) of both ears (389.18) (H90 .3) Arthritis (716.90) (M19.90) Torn medial meniscus (836.0) (S83.249A) Bilateral knee pain (719.46) (M25.561) Allergies and Adverse Reactions Onion Extract POWD (Allergy) Bee sting (Allergy) Reaction: Swelling Medications Acetaminophen ER 650 MG Oral Tablet Exte nded Release; TAKE 1 TABLET 4 TIMES DAILY NEEDED. Start: 12-Jun-2017 Refills: 0 Celecoxib 200 MG Oral Capsule; TAKE 1 CAPSULE Daily BRIELLE Sue Start: 27-Aug-2017 Quantity: 30 Refills: 3 Metoprolol Succinate ER 50 MG Oral Table t Extended Release 24 Hour; take 1 tablet by mouth once daily Carlyle Mallory Start: 25-Feb-2018 Quantity: 90 Refills: 3 DULoxetine HCl - 30 MG Oral Capsule Nirali yed Release Particles; TAKE ONE CAPSULE BY MOUTH ONE TIME DAILY ALONG WITH THE 60 MG CAPSULE (TOTAL OF 90MG DAILY) Carlyle Huffman Start: 07-Jun-2018 Quantity: 30 Refills: 3 DULoxetine HCl - 60 MG Oral Capsule Nirali yed Release Particles; TAKE ONE CAPSULE BY MOUTH ONE TIME DAILY WITH THE 30 MG CAPSULE Carlyle Huffman Start: 07-Jun-2018 Quantity: 30 Refills: 3 Omeprazole 20 MG Oral Capsule Delayed Re lease; TAKE ONE CAPSULE BY MOUTH TWICE DAILY BRIELLE Sue Start: 05-Jul-2018 Quantity: 120 Refills: 3 Vitamin D 1000 UNIT Oral Tablet; TAKE 1 TABLET DAILY. Start: 31-Aug-2017 Quantity: 90 Refills: 3 Multi For Him Oral Capsule; TAKE DIRECTED. Start: 09-Mar-2017 Refills: 0 Procedures History of Shoulder Surgery Status: Comp leted Immunizations Flublok Quadrivalent 0.5 ML Intramuscular Solution Pre filled Syringe On: 30-Dec-2017 16:38 Lot #: [id number], SANOFI PASTEUR Family History Father Family history of kidney stones (V18.69) (Z84.1) Status: Act jessica Social History - Smoking Status Never smoker Plan of Treatment Planned Encounters Appointment; Jesus Huffman M.D. Start: 17-Aug-2018 13:15 R equest Planned Observations Planned Goals not documented Results No Known Results Results not documented Encounters Appointment; [facility] 14-May-2018 16:00 Encounter Diagnosis: Problem not documented Appointment; [place] [address], Nursing Station 13-May-2018 16:00 Encounter Diagnosis: Problem not documented Appointment; Perry Mallory M.D. 10-May-2018 15:45 Encounter Diagnosis: Problem not documented Appointment; Hollie Sue PA-C 08-Mar-2018 13:30 Encounter Diagnosis: Problem not documented Appointment; Cari Hemphill PA-C 24-Feb-2018 15:30 Encounter Diagnosis: Problem not documented Appointment; Stress, Echocardiogram 1 24-Feb-2018 15:00 Encounter Diagnosis: Problem not documented Appointment; Perry Mallory M.D. 20-Jan-2018 12:00 Encounter Diagnosis: Problem not documented Appointment; Jesus Huffman M.D. 30-Dec-2017 15:45 Encounter Diagnosis: Problem not documented Appointment; Luis Sr Au.D.|[facility] 12-Nov-2017 13:00 Encounter Diagnosis: Problem not documented Appointment; Luis Sr Au.D.|[facility] 30-Sep-2017 10:40 Encounter Diagnosis: Problem not documented Appointment; Hollie Sue PA-C 27-Aug-2017 15:00 Encounter Diagnosis: Problem not documented Appointment; [place] [address], Nursing Station 19-May-2017 15:15 Encounter Diagnosis: Problem not documented Appointment; [place] [address], Nursing Station 18-May-2017 15:15 Encounter Diagnosis: Problem not documented Appointment; Perry Mallory M.D. 14-May-2017 13:00 Encounter Diagnosis: Problem not documented Appointment; Hollie Sue PA-C 09-Mar-2017 15:30 Encounter Diagnosis: Problem not documented Appointment; Jesus Huffman M.D. 19-Dec-2016 15:30 Encounter Diagnosis: Problem not documented Appointment; Hollie Sue PA-C 03-Nov-2016 11:30 Encounter Diagnosis: Problem not documented Appointment; Jesus Huffman M.D. 17-Aug-2018 13:15 Encounter Diagnosis: Problem not documented"
[2018-07-25] MEDS ORDERED: ONDANSETRON INJ 2 MG/ML 2 ML VIAL IV STA (22:55)
[2018-07-25] MEDS ORDERED: SODIUM CHLORIDE 0.9% 1000ML 1,000 ML IV SCH (23:00)
[2018-07-25 23:05] LABS: Basophils # (auto) 0.03 K/uL (0-0.2); Basophils % (auto) 0.5 %; Eosinophils # (auto) 0.18 K/uL (0-0.5); Eosinophils % (auto) 2.9 %; Hematocrit (blood only) 41.3 % (42-52); Immature Granulocytes # (auto) 0.06 K/uL (0.00-0.02); Lymphocytes # (auto) 1.48 K/uL (1.2-3.4); Lymphocytes % (auto) 23.9 %; Mean Corpuscular Hgb Conc 36.3 g/dL (32-36); Mean Corpuscular Volume 81.3 fL (80-100); Mean Platelet Volume 8.7 fL (7.4-10.4); Monocytes # (auto) 0.49 K/uL (0.11-0.59); Monocytes % (auto) 7.9 %; Neutrophils # (auto) 3.94 K/uL (1.4-6.5); Neutrophils % (auto) 63.8 %; Platelet Count 200 K/uL (130-400); RDW Standard Deviation 38.8 fL (36.4-46.3); Red Blood Count 5.08 M/uL (4.7-6.1); White Blood Count 6.18 K/uL (4.8-10.8)
[2018-07-25 23:12] LABS: Albumin Level 4.1 gm/dl (3.4-5.0); BUN Creatinine Ratio 12.1 (10-20); Calcium 9.8 mg/dl (8.5-10.1); Creatinine Clr Calc Pharmacy 83.7 ml/min; Est GFR (African American) 82.3; Potassium 3.7 mmol/L (3.5-5.1)
[2018-07-25 23:15] LABS: Albumin Globulin Ratio 1.3 (0.9-2); Bilirubin,Total 0.3 mg/dl (0.2-1); Globulin 3.3 gm/dl (2.5-4.0); Total Protein 7.4 gm/dl (6.4-8.2)
--- NOTE | 2018-07-25 23:16 | Emergency Department Note ---
History of Present Illness General Chief complaint: Dizziness Stated complaint: CARDIAC ASSMENT Source: patient Mode of arrival: ambulatory Limitations: no limitations History of Present Illness This patient is a 62-year-old male who presents to the emergency department complaining of a syncopal episode. 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 He states that when he came to, his car was across the parking lot. He states that now, he feels very weak and tired. His reports that he has been acting weird and she feels he is somewhat confused. She states that he called her immediately after the syncopal episode and told her to come get him. She states that he was very weak and she needed help getting him into the passenger side of the car. The patient has been nauseous and has vomited. He reports he had some dizziness when coming into the emergency department. The patient currently denies any chest pain, shortness of breath or headache. He was seen at [facility] today and diagnosed with an ear infection and prescribed Augmentin. He has taken 1 dose of this. His reports that he had a similar episode at [employer] after riding a 4D ride which was attributed to motion sickness. She reports she believes he has a heart problem and thinks it may be a cardiomyopathy. Home Medications Home Medications Medication Instructions Recorded Confirmed Type amoxicillin-pot clavulanate 1 tab PO BID 07/25/18 07/25/18 History celecoxib 200 mg PO DAILY 07/25/18 07/25/18 History duloxetine 30 mg PO QPM 07/25/18 07/25/18 History duloxetine 60 mg PO QPM 07/25/18 07/25/18 History omeprazole 20 mg PO BID 07/25/18 07/25/18 History Allergies Allergy/AdvReac Type Severity Reaction Status Date / Time bee venom protein (honey bee) Allergy Unknown SWELLING Verified 07/25/18 23:00 No Known Drug Allergies Allergy Unknown NONE Verified 07/25/18 23:00 onion Allergy Unknown GI UPSET Verified 07/25/18 23:00 UP TO LOSE BALANCE, HALLUCINATE WITH LARGER AMTS Past Med/Surg History Medical History Hypertrophic cardiomyopathy Social History Preferred Language: Nepalese Communication Ability: Effective 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 Beliefs That Will Affect Care: None Current Living Situation: Spouse Other Information That Helps Us Care for You: No Feels Safe at Home: Yes Safety Concerns: Feels Safe At This Time Smoking Status: Never smoker Do You Dip or Chew Tobacco: No Second Hand Exposure: No Tobacco Cessation Education Requested by Patient: No Hx Alcohol Use: No Hx Substance Use: No Review of Systems A total of 10 systems reviewed and were otherwise negative Physical Exam Vital Signs Vital Signs - 24 hr 07/25/18 22:19 07/25/18 22:40 07/25/18 23:03 Temperature 36.8 C Temperature Source Oral Sepsis Recent Fever Within 48 Hours No Sepsis Action Taken by Nursing No Action Required Pulse Rate 61 60 Pulse Rate [Apical] Pulse Rate [Right Finger] Pulse Rhythm Regular Regular Pulse Rhythm [Right Finger] Pulse Strength Normal Pulse Strength [Right Finger] Respiratory Rate 18 Respiratory Effort / Characteristics Non-Labored Spontaneous Short of Breath Respiratory Depth Normal Respiratory Pattern Blood Pressure 178/105 H Blood Pressure [Right Arm] Blood Pressure Mean 129 Blood Pressure Mean [Right Arm] Blood Pressure Position Lying Blood Pressure Position [Right Arm] Pulse Oximetry 100 99 Oxygen Delivery Method Room Air Room Air 07/25/18 23:07 07/26/18 00:32 07/26/18 01:09 Temperature Temperature Source Sepsis Recent Fever Within 48 Hours Sepsis Action Taken by Nursing Pulse Rate 65 Pulse Rate [Apical] Pulse Rate [Right Finger] 61 65 Pulse Rhythm Pulse Rhythm [Right Finger] Regular Regular Pulse Strength Pulse Strength [Right Finger] Normal Normal Respiratory Rate 14 15 18 Respiratory Effort / Characteristics Non-Labored Non-Labored Respiratory Depth Normal Normal Respiratory Pattern Regular Regular Blood Pressure 179/89 H Blood Pressure [Right Arm] 176/99 H 160/99 H Blood Pressure Mean Blood Pressure Mean [Right Arm] 124 119 Blood Pressure Position Blood Pressure Position [Right Arm] Lying Pulse Oximetry 99 98 100 Oxygen Delivery Method Room Air Room Air Room Air 07/26/18 01:20 07/26/18 01:50 07/26/18 01:55 Temperature 36.8 C Temperature Source Oral Sepsis Recent Fever Within 48 Hours Sepsis Action Taken by Nursing Pulse Rate 66 71 Pulse Rate [Apical] 63 Pulse Rate [Right Finger] Pulse Rhythm Pulse Rhythm [Right Finger] Pulse Strength Pulse Strength [Right Finger] Respiratory Rate 16 16 Respiratory Effort / Characteristics Non-Labored Spontaneous Non-Labored Spontaneous Respiratory Depth Normal Normal Respiratory Pattern Regular Regular Blood Pressure Blood Pressure [Right Arm] 171/101 H Blood Pressure Mean Blood Pressure Mean [Right Arm] 124 Blood Pressure Position Blood Pressure Position [Right Arm] Pulse Oximetry 99 98 Oxygen Delivery Method Room Air VITALS: Vitals are noted on the nurse's note and reviewed by myself. GENERAL: This is a 62-year-old male, in no acute distress, nondiaphoretic, well- developed well-nourished. SKIN: The skin was without rashes. EARS: External auditory canals clear. Left dependent membrane with purulent effusion. EYES: Pupils equal round and reactive to light and accommodation. Extraocular movements intact. No nystagmus. MOUTH: Mucous membranes moist. Tonsils are not enlarged. Pharynx without erythema or exudate. NECK: Supple without nuchal rigidity. No lymphadenopathy. HEART: Regular rate and rhythm without murmurs gallops or rubs. LUNGS: Clear to auscultation bilaterally without wheezes, rales or rhonchi. ABDOMEN: Positive bowel sounds x 4. Soft, nontender to palpation. MUSCULOSKELETAL: Full range of motion throughout. Strength 5/5 throughout. NEURO: Patient was alert and oriented to person place and time. No focal neurological deficits. Course Reevaluation(s) Reevaluation #1: The patient was reassessed. He is agreeable to admission/observation. Consultations Consultation #1: Dr. Mcdonald [facility] hospitalist Administered Medications Discontinued Medications Sodium Chloride (Nss 1000ml) 1,000 mls @ 999 mls/hr IV .Q1H1M [facility] Stop: 07/26/18 00:00 Last Infusion: 07/26/18 00:56 Dose: 0 mls/hr Documented by: [id number] Admin: 07/25/18 23:07 Dose: 999 mls/hr Documented by: [id number] Ondansetron HCl (Zofran) 4 mg IV NOW [facility] Stop: 07/25/18 22:56 Last Admin: 07/25/18 23:07 Dose: 4 mg Documented by: [id number] Medical Decision Making Differential Diagnosis Differential diagnosis includes cardiac arrhythmia, vasovagal syncope, dehydration, BPPV, among others. Home Medications Current Medication List: was personally reviewed by me Laboratory Data Attestation: I reviewed the patient's lab results. Result diagrams: 07/25/18 22:33 07/25/18 22:33 Lab Results 07/25/18 07/25/18 07/25/18 Range/Units 22:33 22:33 22:33 WBC 6.18 (4.8-10.8) K/uL RBC 5.08 (4.7-6.1) M/uL Hgb 15.0 (14.0-18.0) g/dL Hct 41.3 L (42-52) % MCV 81.3 (80-100) fL MCH 29.5 (25-34) pg MCHC 36.3 H (32-36) g/dL RDW Std Deviation 38.8 (36.4-46.3) fL RDW Coeff of Filippo 13.0 (11.5-14.5) % Plt Count 200 (130-400) K/uL MPV 8.7 (7.4-10.4) fL Immature Gran % (Auto) 1.0 % Neut % (Auto) 63.8 % Lymph % (Auto) 23.9 % Ogle % (Auto) 7.9 % Eos % (Auto) 2.9 % Baso % (Auto) 0.5 % Immature Gran # (Auto) 0.06 H (0.00-0.02) K/uL Neut # (Auto) 3.94 (1.4-6.5) K/uL Lymph # (Auto) 1.48 (1.2-3.4) K/uL Ogle # (Auto) 0.49 (0.11-0.59) K/uL Eos # (Auto) 0.18 (0-0.5) K/uL Baso # (Auto) 0.03 (0-0.2) K/uL Sodium 144 (136-145) mmol/L Potassium 3.7 (3.5-5.1) mmol/L Chloride 110 H (98-107) mmol/L Carbon Dioxide 25 (21-32) mmol/L Anion Gap 9.0 (3-11) BUN 14 (7-18) mg/dl Creatinine 1.12 (0.6-1.4) mg/dl Est Cr Clr Drug Dosing 83.7 ml/min Est GFR ( Amer) 82.3 Est GFR (Non-Af Amer) 71.0 BUN/Creatinine Ratio 12.1 (10-20) Glucose 97 (70-99) mg/dl Calcium 9.8 (8.5-10.1) mg/dl Total Bilirubin 0.3 (0.2-1) mg/dl AST 29 (15-37) U/L ALT 43 (12-78) U/L Alkaline Phosphatase 79 (45-117) U/L POC Troponin I (0-0.045) ng/ml Total Protein 7.4 (6.4-8.2) gm/dl Albumin 4.1 (3.4-5.0) gm/dl Globulin 3.3 (2.5-4.0) gm/dl Albumin/Globulin Ratio 1.3 (0.9-2) Ethyl Alcohol mg/dL (0-3) mg/dl Hepatitis C Ab Screen Neg (Neg) 07/25/18 07/25/18 Range/Units 23:03 23:32 WBC (4.8-10.8) K/uL RBC (4.7-6.1) M/uL Hgb (14.0-18.0) g/dL Hct (42-52) % MCV (80-100) fL MCH (25-34) pg MCHC (32-36) g/dL RDW Std Deviation (36.4-46.3) fL RDW Coeff of Filippo (11.5-14.5) % Plt Count (130-400) K/uL MPV (7.4-10.4) fL Immature Gran % (Auto) % Neut % (Auto) % Lymph % (Auto) % Ogle % (Auto) % Eos % (Auto) % Baso % (Auto) % Immature Gran # (Auto) (0.00-0.02) K/uL Neut # (Auto) (1.4-6.5) K/uL Lymph # (Auto) (1.2-3.4) K/uL Ogle # (Auto) (0.11-0.59) K/uL Eos # (Auto) (0-0.5) K/uL Baso # (Auto) (0-0.2) K/uL Sodium (136-145) mmol/L Potassium (3.5-5.1) mmol/L Chloride (98-107) mmol/L Carbon Dioxide (21-32) mmol/L Anion Gap (3-11) BUN (7-18) mg/dl Creatinine (0.6-1.4) mg/dl Est Cr Clr Drug Dosing ml/min Est GFR ( Amer) Est GFR (Non-Af Amer) BUN/Creatinine Ratio (10-20) Glucose (70-99) mg/dl Calcium (8.5-10.1) mg/dl Total Bilirubin (0.2-1) mg/dl AST (15-37) U/L ALT (12-78) U/L Alkaline Phosphatase (45-117) U/L POC Troponin I < 0.03 (0-0.045) ng/ml Total Protein (6.4-8.2) gm/dl Albumin (3.4-5.0) gm/dl Globulin (2.5-4.0) gm/dl Albumin/Globulin Ratio (0.9-2) Ethyl Alcohol mg/dL < 3.0 (0-3) mg/dl Hepatitis C Ab Screen (Neg) Imaging Data Attestation: I personally reviewed and interpreted this imaging study as follows: My Impression: CHEST 1 VIEW: No acute cardiopulmonary abnormalities. Radiologist's Impression: CT HEAD: No acute intracranial process Radiologist: Peterson Marie M.D. ECG Data Attestation: I personally reviewed and interpreted this ECG as follows: Indication: syncope Rate (beats per minute): 63 Rhythm: normal sinus Findings: + RBBB and + T-wave inversion (lead III) Change: no significant change Blood Pressure Blood Pressure Findings: Elevated blood pressure Blood Pressure Disposition: further management by hospitalist [facility] Narrative The patient is a 62-year-old male who presents today complaining of a syncopal episode. Labs revealed no leukocytosis, anemia or concerning electrolyte abnormalities. Troponin is not elevated. EKG without any acute ischemic findings. CT head was performed given the additional history of dizziness and w as unremarkable. History is somewhat unclear and patient is a poor historian. The patient had a brief episode of chest pain and then had a syncopal episode while driving. There does also appear to be an element of vertigo likely related to his ear infection. Patient does have a history of hypertrophic cardiomyopathy. Given this and the history of a syncopal event, I do feel this warrants further inpatient work-up. The patient was agreeable to this. [facility] Impression & Plan Syncope Discharge Plan Visit Data *Final* Discharge Date/Time: 07/26/18 01:09 Chief Complaint: Dizziness Stated Complaint: CARDIAC ASSMENT Other Complaint: Cardiac Assessment ED Provider: Phil Jacobs ED Midlevel Provider: Breanna James Discharge Problem: Syncope Patient Disposition: Admitted As Inpatient Discharge Instructions Interventions: ED Discharge Assessment Last Done: 07/26/18 01:09
--- NOTE | 2018-07-26 00:50 | History & Physical Report ---
Date of Service July 26, 2018 Assessment & Plan (1) Syncope: 62-year-old male was admitted on 26 Jul 2018 after a syncopal episode. Syncope: Single episode about 1 hour prior to ED arrival. Apparently has a history of the same. He noted some chest discomfort at that time but says it is presently resolved. - Is followed by cardiology for hypertrophic cardiomyopathy. In brief record review, Holter monitor performed in April 2018 was primarily normal sinus rhythm, rate 65, with occasional ventricular ectopy. Stress echocardiogram in February 2018 noted a hypertensive response with stress, mild LVH, mild MR, bicuspid aortic valve, and moderate aortic valve insufficiency (study was stopped due to SOB). Echocardiogram in April 2017 noted an EF of 67%. Most recently saw Dr. Mallory (cardiology) in April 2018. - On arrival, not tachycardic but hypertensive to 178/105. CBC, CMP, INR, and initial TnI are relatively unremarkable. Head CT report (overnight read) noted no acute intracranial process. Single view chest x-ray appears clear (report pending). EKG was normal sinus rhythm, rate 63, with a right BBB. Was treated with 1 L normal saline bolus as well as Zofran. No present chest pain, shortness of breath, or reported history of recent blood loss. - Will recheck TnI and EKG in early AM. Continue Zofran as needed for nausea. Consulted cardiology. Left otitis media, vertigo: Patient notes bilateral ear fullness over the past day. Notes some decreased hearing as well without overt pain. Left TM does appear like OM. His "dizziness" symptoms seem similar to BPPV, but the recurrence and some of the hearing loss means he would likely benefit from a ful l neurological exam as well as potential ENT consult. - We will continue Augmentin for now. Diarrhea: Patient states he is had non-bloody loose stools for 2 to 3 days now. No noted abdominal discomfort and no tenderness to palpation. Electrolytes are okay (Cl a little high). - Monitor for now. Ongoing medical issues: - Hypertension, hypertrophic cardiomyopathy: Continue home metoprolol succinate ER 25 mg daily. - GERD: Continue home omeprazole. - Anxiety, depression with probable explosive personality disorder: Continue home duloxetine. - Obstructive sleep apnea: Continue CPAP use. - Multiple joint issues: Continue home Celebrex. - Elevated BMI. - Hematuria: History of the same, no known source, and apparently resolved. Code status: Full code. Diet: Heart healthy diet. DVT prophy: Lovenox. PT/OT: Deferred. Disbo: Admit to telemetry. (2) Left otitis media: (3) Vertigo: (4) Diarrhea: (5) Hypertension: (6) Hypertrophic cardiomyopathy: (7) GERD (gastroesophageal reflux disease): (8) Anxiety: (9) Explosive personality disorder: (10) JHONNY (obstructive sleep apnea): History of Present Illness Primary Care Provider: Jesus Huffman MD 62-year-old male presents to the emergency department complaining of a syncopal episode. 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 He then recalls being in a parking lot but was unclear how he got there. He called his who noted that on her arrival the patient seemed quite weak. He also notes a single episode of nausea and vomiting. He also notes concurrent feeling of dizziness such as the room is spinning on him. He says this spinning resolves if he holds his head still. - Patient says that he was seen at an urgent care earlier today after noting about 1 days worth of left > right ear fullness and muffled hearing. He was diagnosed with a left ear infection and started on Augmentin. However, he says he threw up his first dose of Augmentin this evening. - He also notes some recent 2-3 days of non-bloody diarrhea. Denies any abdominal symptoms or known sick contacts. - Patient says his last episode of syncope was about 1 year ago. Is unclear what previous syncopal episodes were due to. Does say he has been evaluated by cardiology after an abnormal EKG prior to knee surgery. - says that she is concerned that his current symptoms are related to his ear. She says that within the past year they were at [employer] on a spinning ride. Patient was noted to have severe motion sickness and also passed out "just like this time". She is concerned that his current ear infection may be part of the cause of his syncope. She notes that he was seen by ENT perhaps 10 years ago but the results of that evaluation are not clear. - Presently in the emergency department, patient says that he felt dizzy when he got up to stand such as the room was spinning on him. He says this is as resolved while laying still in the bed. He denies any current chest pain, shortness of breath, abdominal symptoms, and says that his nausea is greatly improved after the Zofran. --- Past medical history includes hypertension, hypertrophic cardiomyopathy, GERD, anxiety, probable explosive personality disorder, obstructive sleep apnea, hematuria. --- Past surgical history includes bilateral knee arthroscopy, right knee ACL reconstruction, right carpal tunnel release, right rotator cuff surgery, right bone spur surgery. --- Social history includes denying prior tobacco use and current alcohol use. Lives with at home. Allergies Allergy/AdvReac Type Severity Reaction Status Date / Time bee venom protein (honey bee) Allergy Unknown SWELLING Verified 07/25/18 23:00 No Known Drug Allergies Allergy Unknown NONE Verified 07/25/18 23:00 onion Allergy Unknown GI UPSET Verified 07/25/18 23:00 UP TO LOSE BALANCE, HALLUCINATE WITH LARGER AMTS Home Medications Home Medications Medication Instructions Recorded Confirmed Type amoxicillin-pot clavulanate 1 tab PO BID 07/25/18 07/25/18 History celecoxib 200 mg PO DAILY 07/25/18 07/25/18 History duloxetine 30 mg PO QPM 07/25/18 07/25/18 History duloxetine 60 mg PO QPM 07/25/18 07/25/18 History omeprazole 20 mg PO BID 07/25/18 07/25/18 History Past Med/Surg History Medical History Hypertrophic cardiomyopathy Social History Preferred Language: [place] Communication Ability: Effective 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 Eyes: Denies any visual loss or diplopia ENT: Denies any nose/throat pain or difficulty speaking or swallowing Respiratory: Denies any dyspnea, cough, hemoptysis Cardiovascular: Positive chest pain as above. Denies peripheral edema. Gastrointestinal: Denies any abdominal pain, nausea/vomiting. Positive loose stools. Musculoskeletal: Denies any acute extremity pains, myalgias, or focal weakness (outside of episode of syncope) Skin: Denies any known acute rashes or lesions Neuro: Denies any headache, acute focal weakness or numbness, or difficulties with speech or swallow. Physical Exam Physical Exam: GENERAL: Awake, alert, well-appearing, in no acute distress HENT: Normocephalic, atraumatic. Oropharynx unremarkable. The right TM appears clear. The left TM is bulging but not erythematous. Bilateral ear canals are clear. EYES: Normal conjunctiva. Sclera non-icteric. NECK: Inspection normal. Supple and full ROM. No nuchal rigidity. CARDIAC: +S1S2 RRR, no murmurs. RESPIRATORY: Clear to auscultation. No wheezes or rales. Normal respiratory effort. GI: +BS, soft, non-distended. No tenderness to palpation. No rebound or guarding. EXTREMITIES: No pedal edema or calf tenderness. Moving all extremities naturally and easily. NEURO: No gross neuro deficits. Results & Data Vital Signs (Past 12 Hours) Vital Signs Temp Pulse Pulse Resp BP BP Pulse Ox 07/26/18 00:32 65 15 160/99 H 98 07/25/18 23:07 61 14 176/99 H 99 07/25/18 23:03 60 99 07/25/18 22:19 36.8 C 61 18 178/105 H 100 Laboratory Results 07/25/18 07/25/18 07/25/18 Range/Units 23:32 23:03 22:33 WBC (4.8-10.8) K/uL RBC (4.7-6.1) M/uL Hgb (14.0-18.0) g/dL Hct (42-52) % MCV (80-100) fL MCH (25-34) pg MCHC (32-36) g/dL RDW Std Deviation (36.4-46.3) fL RDW Coeff of Filippo (11.5-14.5) % Plt Count (130-400) K/uL MPV (7.4-10.4) fL Immature Gran % (Auto) % Neut % (Auto) % Lymph % (Auto) % [place] % (Auto) % Eos % (Auto) % Baso % (Auto) % Immature Gran # (Auto) (0.00-0.02) K/uL Neut # (Auto) (1.4-6.5) K/uL Lymph # (Auto) (1.2-3.4) K/uL [place] # (Auto) (0.11-0.59) K/uL Eos # (Auto) (0-0.5) K/uL Baso # (Auto) (0-0.2) K/uL Sodium 144 (136-145) mmol/L Potassium 3.7 (3.5-5.1) mmol/L Chloride 110 H (98-107) mmol/L Carbon Dioxide 25 (21-32) mmol/L Anion Gap 9.0 (3-11) BUN 14 (7-18) mg/dl Creatinine 1.12 (0.6-1.4) mg/dl Est Cr Clr Drug Dosing 83.7 ml/min Est GFR ( Amer) 82.3 Est GFR (Non-Af Amer) 71.0 BUN/Creatinine Ratio 12.1 (10-20) Glucose 97 (70-99) mg/dl Calcium 9.8 (8.5-10.1) mg/dl Total Bilirubin 0.3 (0.2-1) mg/dl AST 29 (15-37) U/L ALT 43 (12-78) U/L Alkaline Phosphatase 79 (45-117) U/L POC Troponin I < 0.03 (0-0.045) ng/ml Total Protein 7.4 (6.4-8.2) gm/dl Albumin 4.1 (3.4-5.0) gm/dl Globulin 3.3 (2.5-4.0) gm/dl Albumin/Globulin Ratio 1.3 (0.9-2) Ethyl Alcohol mg/dL < 3.0 (0-3) mg/dl 07/25/18 Range/Units 22:33 WBC 6.18 (4.8-10.8) K/uL RBC 5.08 (4.7-6.1) M/uL Hgb 15.0 (14.0-18.0) g/dL Hct 41.3 L (42-52) % MCV 81.3 (80-100) fL MCH 29.5 (25-34) pg MCHC 36.3 H (32-36) g/dL RDW Std Deviation 38.8 (36.4-46.3) fL RDW Coeff of Filippo 13.0 (11.5-14.5) % Plt Count 200 (130-400) K/uL MPV 8.7 (7.4-10.4) fL Immature Gran % (Auto) 1.0 % Neut % (Auto) 63.8 % Lymph % (Auto) 23.9 % [place] % (Auto) 7.9 % Eos % (Auto) 2.9 % Baso % (Auto) 0.5 % Immature Gran # (Auto) 0.06 H (0.00-0.02) K/uL Neut # (Auto) 3.94 (1.4-6.5) K/uL Lymph # (Auto) 1.48 (1.2-3.4) K/uL [place] # (Auto) 0.49 (0.11-0.59) K/uL Eos # (Auto) 0.18 (0-0.5) K/uL Baso # (Auto) 0.03 (0-0.2) K/uL Sodium (136-145) mmol/L Potassium (3.5-5.1) mmol/L Chloride (98-107) mmol/L Carbon Dioxide (21-32) mmol/L Anion Gap (3-11) BUN (7-18) mg/dl Creatinine (0.6-1.4) mg/dl Est Cr Clr Drug Dosing ml/min Est GFR ( Amer) Est GFR (Non-Af Amer) BUN/Creatinine Ratio (10-20) Glucose (70-99) mg/dl Calcium (8.5-10.1) mg/dl Total Bilirubin (0.2-1) mg/dl AST (15-37) U/L ALT (12-78) U/L Alkaline Phosphatase (45-117) U/L POC Troponin I (0-0.045) ng/ml Total Protein (6.4-8.2) gm/dl Albumin (3.4-5.0) gm/dl Globulin (2.5-4.0) gm/dl Albumin/Globulin Ratio (0.9-2) Ethyl Alcohol mg/dL (0-3) mg/dl Medications Administered Discontinued Medications Sodium Chloride (Nss 1000ml) 1,000 mls @ 999 mls/hr IV .Q1H1M [facility] Stop: 07/26/18 00:00 Last Admin: 07/25/18 23:07 Dose: 999 mls/hr Documented by: [id number] Ondansetron HCl (Zofran) 4 mg IV NOW [facility] Stop: 07/25/18 22:56 Last Admin: 07/25/18 23:07 Dose: 4 mg Documented by: [id number] Code Status & VTE Plan Code Status Full code VTE Prophylaxis Plan VTE Prophylaxis will be ordered: Yes Supervising Physician Co-Signing Physician Notes Attending addendum: I have physically seen this patient, have supervised the medical residents activities, and agree with the H&P unless as otherwise noted. Assessment and Plan: Syncope/hypertrophic cardiomyopathy/aortic stenosis/bicuspid aortic valve-- The patient will be admitted to telemetry for serial cardiac enzymes, serial EKG's, cardiac rhythm monitoring and a 2-D echocardiogram with Dopplers. Differential includes inappropriate tachycardia or bradycardia, vasovagal syncope, dehydration causing decreased preload associated with bicuspid aortic valve and aortic stenosis, vertigo associated with otitis media. Unlikely seizure event. Do not see indication for MRI of brain or EEG, unless patient presents with some new symptoms overnight. CT of head negative. Chest x-ray with no acute findings. Laboratory work-up, including CBC with differential, troponin and chemistry profile is normal. 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 Mallory. Remainder of orders and notations as noted. Resident Activity Tracking Resident Involvement: Resident Care Provided Care Provided: Adult Hospital Medicine
[2018-07-26] MEDS ORDERED: ONDANSETRON INJ 2 MG/ML 2 ML VIAL IV PRN (01:30)
[2018-07-26 03:48] LABS: Appearance Urine Clear (Clear); Bilirubin Urine Negative (Negative); Blood Urine Negative (Negative); Color Urine Yellow; Glucose Urine UA Negative (Negative); Ketones Urine Negative (Negative); Leukocyte Esterase Urine Negative (Negative); Nitrite Urine Negative (Negative); Protein Urine Negative (Negative); Specific Gravity Urine 1.011 (1.000-1.030); Urobilinogen Urine Negative (Negative)
[2018-07-26 05:43] LABS: Prothrombin Time 10.7 Seconds (9.0-12.0)
--- NOTE | 2018-07-26 06:22 | XRay Report ---
XR chest 1V portable CLINICAL HISTORY: chest pain, syncope dyspnea COMPARISON STUDY: 05/29/2013 FINDINGS: The bones soft tissues and hemidiaphragms are normal. The cardiomediastinal silhouette is n ormal. The lungs are clear. The pulmonary vasculature is normal. IMPRESSION: Negative chest. The above report was generated using voice recognition software. It may contain grammatical, syntax or spelling errors. Electronically signed by: Richard Ardon M.D. 07/26/2018 6:20 AM
--- NOTE | 2018-07-26 06:25 | CT Scan Report ---
CT head/brain wo con CLINICAL HISTORY: syncope, dizziness COMPARISON STUDY: No previous studies for comparison. TECHNIQUE: Axial CT of the brain is performed from the vertex to the skull base. IV contrast was not administered for this examination. A dose lowering technique was utilized adhering to the principles of ALARA. CT DOSE: 537.48 mGy.cm FINDINGS: No intra or extra-axial mass lesions are visualized. There is no CT evidence of acute cortical infarc tion. There is no evidence of midline shift. There is no acute hemorrhage. No calvarial fractures ar e visualized. There are normal white matter hypodensities likely on a small vessel basis. There is no evidence of pathologic ventricular dilatation. There are suspected choroid plexus cysts. There is no evidence of acute sinusitis IMPRESSION: No acute intracranial findings Electronically signed by: Cade Elkins M.D. 07/26/2018 6:24 AM
[2018-07-26] MEDS ORDERED: AMOXICILLIN/CLAVULANATE 875 MG TAB PO SCH (08:00)
[2018-07-26] MEDS ORDERED: METOPROLOL SUCC 25MG EXT REL TAB PO SCH (09:00)
[2018-07-26] MEDS ORDERED: CeleBREX 200 MG CAP PO SCH (09:00)
[2018-07-26] MEDS ORDERED: PANTOprazole 40 MG TAB PO SCH (09:00)
[2018-07-26] MEDS ORDERED: ENOXAPARIN INJ 40 MG/0.4 ML SYR SQ SCH (09:00)
--- NOTE | 2018-07-26 10:50 | Family Medicine Progress Note ---
Date of Service July 26, 2018 Results & Data Vital Signs (Past 12 Hours) Vital Signs Temp Pulse Pulse Pulse Resp BP BP 07/26/18 07:09 36.6 C 69 21 169/93 H 07/26/18 06:21 79 07/26/18 03:42 36.4 C L 62 151/95 H 07/26/18 01:55 71 16 07/26/18 01:50 66 07/26/18 01:20 36.8 C 63 16 171/101 H 07/26/18 01:09 65 18 179/89 H 07/26/18 00:32 65 15 160/99 H 07/25/18 23:07 61 14 176/99 H 07/25/18 23:03 60 Pulse Ox 07/26/18 07:09 100 07/26/18 06:21 07/26/18 03:42 95 07/26/18 01:55 98 07/26/18 01:50 07/26/18 01:20 99 07/26/18 01:09 100 07/26/18 00:32 98 07/25/18 23:07 99 07/25/18 23:03 99
--- NOTE | 2018-07-26 13:04 | Cardiology Consultation ---
Date of Consultation July 26, 2018 Assessment & Plan (1) Hypertrophic cardiomyopathy: This diagnosis is based on his echocardiogram. Development of H[place] this late in life is unusual. He does not appear to have any symptoms related to hypertrophy. He has no murmur on exam. He is not known to have a gradient on prior echocardiography. His septum is relatively small. There was some concern regarding any arrhythmia as detailed below. However, was not seen any documented arrhythmias on outpatient monitoring previously. He has not had any arrhythmias since hospitalization. I think some form of outpatient monitoring would be beneficial and we will make these arrangements after discharge. (2) Aortic valve disease: He has a history of bicuspid aortic valve. Do not believe there is any significant valvular dysfunction. Do not believe his episode is likely related to this valve disease. (3) Syncope and collapse: The patient presented with syncope. There are many possible etiologies for the episode. Certainly in the setting of hypertrophic cardiomyopathy there is some concern regarding an arrhythmic etiology. However, there are many features of his episode which would suggest otherwise. He had significant nausea, vomiting and diaphoresis. He also had vertiginous symptoms and symptoms of dizziness associated with changes in position in the setting of an inner ear infection. I think the chance of an arrhythmia is lower given this additional history. There has not been any arrhythmias on telemetry. At this point I think we can continue to monitor him as an outpatient perhaps with an implantable loop recorder. I will discuss this with the patient in the outpatient setting we can arrange for this after discharge. History of Present Illness Reason for Consultation: Syncope Requesting Physician: Sparkle Attending Physician: Kaylah Mujica MD History of Present Illness The patient is a 62-year-old gentleman with a diagnosis of hypertrophic cardiomyopathy based on an echocardiogram performed a couple of years ago. Patient states yesterday he experienced a syncopal episode. Patient did have a prodrome. Early yesterday morning he woke and was feeling quite poorly. He felt like his ear was clogged and had significant fatigue. He did present to an urgent care center prior to this event and was prescribed antibiotics for presumed otitis media. Immediately preceding the episode the patient did have a sense of dizziness and lightheadedness. This was associated with some diaphoresis as well. Unclear whether he lost postural tone but he did wake up in a parking lot with his car parked. He does not remember the events leading up to that point in time. Afterwards he also had significant dizziness and some gastrointestinal complaints which resulted in vomiting. He is brought [facility] where his symptoms persisted. The symptom of dizziness did appear to wax and wane in severity and was positional in nature. His in itial evaluation was unremarkable and he was admitted to the telemetry unit for observation. This morning he claims to be feeling better. Continues to have headache and some discomfort in his left ear. He continues to have an element of nasal congestion. He denied fevers or chills leading up to this event. He is not currently having significant dizziness or lightheadedness. He has not been a carbajal of any palpitations. He states that the episode yesterday was similar in character to what he [place] an amusement park [place] 1 year ago. That also involved a sense of spinning nausea and vomiting after getting off an amusement ride. Allergies Allergy/AdvReac Type Severity Reaction Status Date / Time bee venom protein (honey bee) Allergy Unknown SWELLING Verified 07/25/18 23:00 No Known Drug Allergies Allergy Unknown NONE Verified 07/25/18 23:00 onion Allergy Unknown GI UPSET Verified 07/25/18 23:00 UP TO LOSE BALANCE, HALLUCINATE WITH LARGER AMTS Home Medications Home Medications Medication Instructions Recorded Confirmed Type amoxicillin-pot clavulanate 1 tab PO BID 07/25/18 07/25/18 History celecoxib 200 mg PO DAILY 07/25/18 07/25/18 History duloxetine 30 mg PO QPM 07/25/18 07/25/18 History duloxetine 60 mg PO QPM 07/25/18 07/25/18 History omeprazole 20 mg PO BID 07/25/18 07/25/18 History Patient History Medical History Hypertrophic cardiomyopathy Social History Preferred Language: Turkmen Communication Ability: Effective Resistor Coater Required: No Beliefs That Will Affect Care: None Current Living Situation: Spouse Other Information That Helps Us Care for You: No Feels Safe at Home: Yes Safety Concerns: Feels Safe At This Time Smoking Status: Never smoker Do You Dip or Chew Tobacco: No Second Hand Exposure: No Tobacco Cessation Education Requested by Patient: No Hx Alcohol Use: No Hx Substance Use: No Review of Systems Review of Systems: All systems reviewed & are unremarkable except as noted in HPI & below He is breakfast this morning. Until yesterday he has been feeling relatively well. His was hospitalized recently for an upper respiratory illness. He has maintained his usual level of activity and does not appear to have significant exertional symptoms. Physical Exam Physical Exam: The patient is alert and oriented. Mood and affect appeared normal. He did appear somewhat uncomfortable and had an ice bag on his head for a headache. He answered all questions appropriately. HEENT: Pupils are equal and reactive to light and accommodation. Extraocular movements are intact. The sclerae are anicteric. Neuro: Cranial nerves intact Neck: Patient's neck is supple. He has palpable carotid pulses bilaterally without bruits on auscultation. There is no evidence of jugular venous distention. The thyroid is not enlarged. Lungs: Clear to auscultation bilaterally. He has good air movement without use of accessory muscles. No rales wheezes or rhonchi. Cardiac: Heart demonstrates a regular rate and rhythm. Normal S1 and S2. No murmurs on examination. Pulses: The patient has palpable radial pulses bilaterally that are equal in intensity Extremities: There was no evidence of hypoperfusion. There is no cyanosis or clubbing. There is no edema. Skin: I did not appreciate any rashes on examination today. Results & Data Vital Signs (Past 12 Hours) Vital Signs Temp Pulse Pulse Resp BP BP Pulse Ox 07/26/18 11:52 36.5 C 71 20 173/93 H 98 07/26/18 07:09 36.6 C 69 21 169/93 H 100 07/26/18 06:21 79 07/26/18 03:42 36.4 C L 62 151/95 H 95 07/26/18 01:55 71 16 98 07/26/18 01:50 66 07/26/18 01:20 36.8 C 63 16 171/101 H 99 07/26/18 01:09 65 18 179/89 H 100 Laboratory Results Abnormal Lab Results 07/25/18 07/25/18 07/25/18 22:33 22:33 22:33 WBC 6.18 RBC 5.08 Hgb 15.0 Hct 41.3 L MCV 81.3 MCH 29.5 MCHC 36.3 H RDW Std Deviation 38.8 RDW Coeff of Filippo 13.0 Plt Count 200 MPV 8.7 Immature Gran % (Auto) 1.0 Neut % (Auto) 63.8 Lymph % (Auto) 23.9 [place] % (Auto) 7.9 Eos % (Auto) 2.9 Baso % (Auto) 0.5 Immature Gran # (Auto) 0.06 H Neut # (Auto) 3.94 Lymph # (Auto) 1.48 [place] # (Auto) 0.49 Eos # (Auto) 0.18 Baso # (Auto) 0.03 PT INR Sodium 144 Potassium 3.7 Chloride 110 H Carbon Dioxide 25 Anion Gap 9.0 BUN 14 Creatinine 1.12 Est Cr Clr Drug Dosing 83.7 Est GFR ( Amer) 82.3 Est GFR (Non-Af Amer) 71.0 BUN/Creatinine Ratio 12.1 Glucose 97 Calcium 9.8 Total Bilirubin 0.3 AST 29 ALT 43 Alkaline Phosphatase 79 POC Troponin I Troponin I Total Protein 7.4 Albumin 4.1 Globulin 3.3 Albumin/Globulin Ratio 1.3 Urine Color Urine Appearance Urine pH Ur Specific Levels Urine Protein Urine Glucose (UA) Urine Ketones Urine Blood Urine Nitrite Urine Bilirubin Urine Urobilinogen Ur Leukocyte Esterase Ethyl Alcohol mg/dL Hepatitis C Ab Screen Neg 07/25/18 07/25/18 07/26/18 23:03 23:32 03:20 WBC RBC Hgb Hct MCV MCH MCHC RDW Std Deviation RDW Coeff of Filippo Plt Count MPV Immature Gran % (Auto) Neut % (Auto) Lymph % (Auto) [place] % (Auto) Eos % (Auto) Baso % (Auto) Immature Gran # (Auto) Neut # (Auto) Lymph # (Auto) [place] # (Auto) Eos # (Auto) Baso # (Auto) PT INR Sodium Potassium Chloride Carbon Dioxide Anion Gap BUN Creatinine Est Cr Clr Drug Dosing Est GFR ( Amer) Est GFR (Non-Af Amer) BUN/Creatinine Ratio Glucose Calcium Total Bilirubin AST ALT Alkaline Phosphatase POC Troponin I < 0.03 Troponin I Total Protein Albumin Globulin Albumin/Globulin Ratio Urine Color Yellow Urine Appearance Clear Urine pH 7.0 Ur Specific Levels 1.011 Urine Protein Negative Urine Glucose (UA) Negative Urine Ketones Negative Urine Blood Negative Urine Nitrite Negative Urine Bilirubin Negative Urine Urobilinogen Negative Ur Leukocyte Esterase Negative Ethyl Alcohol mg/dL < 3.0 Hepatitis C Ab Screen 07/26/18 07/26/18 05:10 05:10 WBC RBC Hgb Hct MCV MCH MCHC RDW Std Deviation RDW Coeff of Filippo Plt Count MPV Immature Gran % (Auto) Neut % (Auto) Lymph % (Auto) [place] % (Auto) Eos % (Auto) Baso % (Auto) Immature Gran # (Auto) Neut # (Auto) Lymph # (Auto) [place] # (Auto) Eos # (Auto) Baso # (Auto) PT 10.7 INR 1.0 Sodium Potassium Chloride Carbon Dioxide Anion Gap BUN Creatinine Est Cr Clr Drug Dosing Est GFR ( Amer) Est GFR (Non-Af Amer) BUN/Creatinine Ratio Glucose Calcium Total Bilirubin AST ALT Alkaline Phosphatase POC Troponin I Troponin I < 0.015 Total Protein Albumin Globulin Albumin/Globulin Ratio Urine Color Urine Appearance Urine pH Ur Specific Levels Urine Protein Urine Glucose (UA) Urine Ketones Urine Blood Urine Nitrite Urine Bilirubin Urine Urobilinogen Ur Leukocyte Esterase Ethyl Alcohol mg/dL Hepatitis C Ab Screen Diagnostic Findings Chest x-ray the time of admission was unremarkable CT scan of the head did not reveal any acute intracranial process Initial EKG revealed sinus rhythm with right bundle branch block ECG Additional Comments: No arrhythmias on telemetry
[2018-07-26] MEDS ORDERED: ACETAMINOPHEN 325 MG TAB PO PRN (13:12)
--- NOTE | 2018-07-26 17:39 | Discharge Summary ---
Date of Service July 26, 2018 Admission HPI Per Admitting Provider 62-year-old male presents to the emergency department complaining of a syncopal episode. Considered broad differential for syncope, initial evalutations and history not suspicious for seizure, or orthostatic hypotension. History of similar episode after movement, vertigo and dizziness not sure if every truly lost consciousness as remembers him awake. likely a vertigo/labyrinthitis picture vs arrhythmia that was resolved by the time we evaluated him. Consulted cardiology who do not believe this is due to structural heart issue. Had a echocardiogram in February showing Bicuspid aortic valve but not showing evid ence of any symptomatic dysfunction. Cardiology would like quick follow up and to potentially place a loop recorder in the outpatient setting. Will have patient finish course of augmentin to adquately treat Left AOM. Do not feel patient is in any acute danger, recommended patient follow up with primary care or cardiology before driving again. Admission Exam Per Admitting Provider GENERAL: Awake, alert, well-appearing, in no acute distress HENT: Normocephalic, atraumatic. Oropharynx unremarkable. The right TM appears clear. The left TM is bulging but not erythematous. Bilateral ear canals are clear. EYES: Normal conjunctiva. Sclera non-icteric. NECK: Inspection normal. Supple and full ROM. No nuchal rigidity. CARDIAC: +S1S2 RRR, no murmurs. RESPIRATORY: Clear to auscultation. No wheezes or rales. Normal respiratory effort. GI: +BS, soft, non-distended. No tenderness to palpation. No rebound or guarding. EXTREMITIES: No pedal edema or calf tenderness. Moving all extremities naturally and easily. NEURO: No gross neuro deficits. Principal Diagnosis labyrynthitis vs arrhythmia Discharge Exam Constitutional well developed, well nourished and + obese; no acute distress Respiratory normal respiratory effort, lungs clear to auscultation Cardiovascular RRR, no murmur, no edema Heart Sounds: no click, no gallop and no cardiac rub Extremities: no calf tenderness and no edema Gastrointestinal (Abdomen) normal bowel sounds, soft, nontender, no hepatosplenomegaly Psychiatric Orientation: alert and oriented x 3 Affect: + anxious affect Discharge Data Allergies Allergy/AdvReac Type Severity Reaction Status Date / Time bee venom protein (honey bee) Allergy Unknown SWELLING Verified 07/25/18 23:00 No Known Drug Allergies Allergy Unknown NONE Verified 07/25/18 23:00 onion Allergy Unknown GI UPSET Verified 07/25/18 23:00 UP TO LOSE BALANCE, HALLUCINATE WITH LARGER AMTS Consultations 07/25/18 23:28 ED Decision to Admit Stat 07/26/18 01:30 Consult Cardiology Routine Ordered Studies 07/25/18 22:54 CT head/brain wo con Stat Hospital Course (1) Syncope: 62-year-old male was admitted on 26 Jul 2018 after a vertiginous and syncopal episode Syncope: Single episode about 1 hour prior to ED arrival. Apparently has a history of the same. He noted some chest discomfort at that time but resolved on admission. - Negative work up - CT head, echo, CXR, labs, troponin. No arrhythmias noted. - Was treated with 1 L normal saline bolus - Consulted cardiology. No intervention recommended. To have outpatient f/u - ?Possible labyrinthitis contributed on syncopal event Left otitis media, vertigo: Was started on augmentin as outpatient. - Continue Augmentin to finish the course Diarrhea: Resolved. Ongoing medical issues: - Hypertension, hypertrophic cardiomyopathy: Continued home metoprolol succinate ER 25 mg daily. - GERD: Continued home omeprazole. - Anxiety, depression with probable explosive personality disorder: Continued home duloxetine. - Obstructive sleep apnea: Continued CPAP use. - Multiple joint issues: Continued home Celebrex. - Elevated BMI. - Hematuria: History of the same, no known source, and apparently resolved. (2) Left otitis media: (3) Vertigo: (4) Diarrhea: (5) Hypertension: (6) Hypertrophic cardiomyopathy: (7) GERD (gastroesophageal reflux disease): (8) Anxiety: (9) Explosive personality disorder: (10) JHONNY (obstructive sleep apnea): Total Time Total Time Spent Total Time Spent (In Minutes): 35 Discharge Plan Discharge Items Patient Disposition: Home - Self-Care Reason For Visit: SYNCOPE Discharge Diagnosis: Vertigo/Syncope/labyrinthitis Discharge Goals: Diagnostic testing, Improve disease control and Increase independence Activity: Per 'Additional Instructions' section Non-emergency contact: Primary Care Provider and Clinical Informatics Physician Call non-emergency contact if: you have any medication questions and your symptoms worsen Follow-up/Referrals: Jesus Huffman MD [Primary Care Provider] - 08/02/18 11:00 am (Please, follow up at Dr. Jesus Huffman's office with his client account assistant, Hollie Sue PA-C, on ThursdayAugust 02 at 11:00 am. *If you need to change the appointment, call the office at [phone].) Doc Mallory MD [Physician] - 08/09/18 3:00 pm (Please, follow up at [facility] Cardiology Office with Dr. Mallory's client account assistant, Cari Hemphill PA-C, on ThursdayAugust 09 at 3:00 pm. *This office is located in [address] of [facility] - big building next to this hospital. If you need to change this appointment, call the office at [phone].) Diet: Regular Addtl Provider Instructions: Mr. Bryan, it has been my pleasure to meet you and evaluate you for your syncopal (passing out) episode and vertigo. It was important to us to rule out any severe and potentially life threatening causes of your symptoms and we have worked to rule some of those out. At this time we believe your heart structure and function is not causing these symptoms, however we cannot rule out arrhythmia, abnormal electrical activity of the heart. We recommend you follow up with Dr. Mallory in the outpatient setting for possible placement of a loop recorder so we can evaluate your heart rhythm over time. We also considered doing an EEG, but based on the history and your physical exam we do not believe that this is neurologic in nature. The most likely diagnosis is labyrinthitis or inflammation of the inner ear causing vision and motion disturbances. You currently have an upper respiratory infection including ear involvement that could have exacerbated an already sensitive inner ear. We recommend close follow up with your primary care provider and if symptoms were to continue, following up with an EEG at that time. Please continue to take and complete your course of augmentin for your URI and ear infection. You may continue to take excedrin for your headache and I recommend making an effort to stay better hydrated by drinking more water. Prescriptions: Continued duloxetine 30 mg capsule,delayed release(DR/EC) 30 mg PO QPM RF: 0 duloxetine 60 mg capsule,delayed release(DR/EC) 60 mg PO QPM RF: 0 celecoxib 200 mg capsule 200 mg PO DAILY RF: 0 omeprazole 20 mg capsule,delayed release(DR/EC) 20 mg PO BID RF: 0 amoxicillin-pot clavulanate 875-125 mg tablet 1 tab PO BID RF: 0 Stand-Alone Forms: [facility] [employer]/Other Patient Handouts: Anatomy Inner Ear, Labyrinthitis Discharge Orders: Discharge Order (Routine); Ordered 07/26/18 Ordered By: Abdoul Stroud Admission Data Admit Date/Time: 07/26/18 00:45 Attending Provider: Kaylah Mujica Admit Provider: Rogelio Villagran Primary Care Provider: Jesus Huffman Other Providers: Víctor Diane ; Colton Mcdonald Service: Telemetry Other Interventions: Discharge Summary Assessment (RN) Last Done: 07/26/18 15:14 DC Date/Time DO NOT enter until pt leaves facility: 07/26/18 15:52 Supervising Physician Co-Signing Physician Notes Resident Physician Supervision Note: I independently interviewed and examined the patient and verified the lopez history and physical, reviewed labs and image studies, discussed the case with the resident Dr. Stroud and agree with the findings and care plan. Resident Activity Tracking Resident Involvement: Resident Care Provided Care Provided: Adult Hospital Medicine
[2018-07-26] MEDS ORDERED: DULOXETINE HCL 30 MG CAP PO SCH (21:00)
[2018-07-26] MEDS ORDERED: DULOXETINE HCL 60 MG CAP PO SCH (21:00)
== END 2018-07-26 15:52 | disposition home or self-care (01) | DRG 312 ==
LOC: ED 22:18 → 2S 07-26 00:45 → SUATTDRO 07-26 00:45 → 2S 07-26 01:09
DX: I35.8 Other nonrheumatic aortic valve disorders; Z91.030 Bee allergy status; R19.7 Diarrhea, unspecified; Z91.018 Allergy to other foods; F41.8 Other specified anxiety disorders; R55 Syncope and collapse; I25.5 Ischemic cardiomyopathy; F60.3 Borderline personality disorder; H66.92 Otitis media, unspecified, left ear; I10 Essential (primary) hypertension; G47.33 Obstructive sleep apnea (adult) (pediatric); K21.9 Gastro-esophageal reflux disease without esophagitis; H83.02 Labyrinthitis, left ear